=== PATIENT | male | born 1970 | race Hispanic/Latino ===

== ENCOUNTER 2018-11-10 12:13 | Observation (INO) | payer OTHER ==
--- NOTE | 2018-11-10 13:48 | RAD REPORT ---
EXAM DESCRIPTION: RAD - Chest Single View - 11/10/2018 1:32 pm CLINICAL HISTORY: CHEST PAIN Chest pain. COMPARISON: No comparisons FINDINGS: Portable technique limits examination quality. The lungs are grossly clear. The heart is normal in size. No displaced fractures.Right-sided venous c atheter has tip in the right atrium. IMPRESSION: No acute intrathoracic process suspected.
[2018-11-10 13:53] LABS: Albumin 3.4 g/dL (3.4-5.0); Bilirubin Direct 0.1 mg/dL (0-0.2); Bilirubin Total 0.4 mg/dL (0.2-1.0); Potassium 3.5 mmol/L (3.5-5.1); Protein, Total 7.3 g/dL (6.4-8.2); Troponin (Emerg Dept Use Only) 0.02 ng/mL (0.0-0.045)
[2018-11-10 14:00] LABS: Absolute Lymphocytes (CBC) 1.2 K/uL (0.7-4.9); Absolute Monocytes 0.6 K/uL (0.1-1.3); Basophils % 0.3 % (0-1.3); Eosinophils % 0.6 % (0-4.4); Hematocrit 36.1 % (39.6-49.0); Lymphocytes % 12.6 % (15.3-44.8); MPV 8.1 fL (7.6-11.3); Monocytes % 6.3 % (3.3-12.3); RBC Red Blood Cell Count 4.08 M/uL (4.33-5.43)
[2018-11-10 14:09] LABS: Protime INR 1.01
--- NOTE | 2018-11-10 17:15 | EKG ---
Test Date: 2018-11-10 Test Time: 12:53:52 Ice Maker: AME MEASUREMENT RESULTS: Intervals: Rate: 62 MA: 156 QRSD: 112 QT: 458 QTc: 464 [place]: P: 20 MA: 156 QRS: -10 T: 118 INTERPRETIVE STATEMENTS: Normal sinus rhythm Left ventricular hypertrophy with repolarization abnormality Abnormal ECG No previous ECG available for comparison Electronically Signed On 11-10-18 17:13:44 CDT by Daniele Santos
--- NOTE | 2018-11-10 17:34 | ER ---
Nurse's Notes [facility] Name: Ryder Gregory Age: 48 yrs Sex: Male : 1970 Arrival Date: 11/10/2018 Time: 12:19 Bed 27 Private MD: Diagnosis: Shortness of breath;Chest pain, unspecified Presentation: 11/10 12:20 Presenting complaint: EMS states: Pt had episode of SOB and chest pressure after aa5 finishing Dialysis today, EMS reports [facility] reported they removed 2.5 kg today and when they flushed the dialysis catheter with saline pt started experiencing shortness of breath. Pt states "I started feeling a lot of pressure in my neck like somebody was choking me". Pt states "I just started getting dialysis July 2018". 12:20 Method Of Arrival: EMS: [facility] aa5 12:20 Transition of care: [facility]. Onset of symptoms was November 10, 2018. Risk aa5 Assessment: Do you want to hurt yourself or someone else? Patient reports no desire to harm self or others. Initial Sepsis Screen: Does the patient meet any 2 criteria? No. Patient's initial sepsis screen is negative. Does the patient have a suspected source of infection? No. Patient's initial sepsis screen is negative. Care prior to arrival: IV initiated. 20 GA, in the left forearm, Oxygen administered. via nasal cannula. 12:20 Acuity: LEBRON 3 aa5 Triage Assessment: 15:00 Respiratory: Onset: The symptoms/episode began/occurred suddenly. mg2 15:00 Respiratory: Reports shortness of breath. mg2 15:02 Respiratory: the patient has mild shortness of breath. mg2 Historical: - Allergies: 12:20 No Known Allergies; aa5 - PMHx: 12:20 Hypertension; Hyperlipidemia; ESRD; Dialysis; Diabetes - NIDDM; Myocardial infarction; aa5 - PSHx: 12:20 Dialysis catheter to right side of chest; aa5 - Immunization history:: Flu vaccine is up to date. - Social history:: Smoking status: Patient/guardian denies using tobacco. - Ebola Screening: : No symptoms or risks identified at this time. - Family history:: not pertinent. - Hospitalizations: : No recent hospitalization is reported. Screenin:10 Abuse screen: Denies threats or abuse. Denies injuries from another. Nutritional iw screening: No deficits noted. Tuberculosis screening: No symptoms or risk factors identified. Fall Risk IV access (20 points). Assessment: 12:20 Reassessment: Patient states feeling better. Patient states symptoms have improved. aa5 General: Appears comfortable, Behavior is calm, cooperative. Pain: Denies pain. Neuro: Level of Consciousness is awake, alert, obeys commands, Oriented to person, place, time, situation. Cardiovascular: Heart tones S1 S2 present Dialysis catheter noted to right upper chest Rhythm is regular. Respiratory: Airway is patent Respiratory effort is even, unlabored, Respiratory pattern is regular, symmetrical, Breath sounds are clear bilaterally. Denies shortness of breath. GI: Abdomen is round non-distended, Bowel sounds present X 4 quads. Abd is soft and non tender X 4 quads. : No signs and/or symptoms were reported regarding the genitourinary system. EENT: No signs and/or symptoms were reported regarding the EENT system. Derm: Skin is pink, warm \\T\\ dry. Musculoskeletal: Range of motion: intact in all extremities. 13:00 Reassessment: Report given to Brook Arrington RN. aa5 13:39 Reassessment: Patient appears in no apparent distress at this time. Patient and/or iw family updated on plan of care and expected duration. Pain level reassessed. Patient is alert, oriented x 3, equal unlabored respirations, skin warm/dry/pink. pt denies pain at this time, call light within reach, VSS, awaiting lab results and CXR. Vital Signs: 12:22 BP 161 / 81; Pulse 66; Resp 18 S; Temp 97.8(O); Pulse Ox 100% on R/A; Weight 83 kg (R); aa5 Height 5 ft. 7 in. (170.18 cm) (R); Pain 0/10; 14:13 BP 167 / 82; Pulse 60; Resp 16; Pulse Ox 100% on 2 lpm NC; Pain 0/10; iw 15:03 Pulse 68; Resp 18; Pulse Ox 100% on R/A; mg2 15:29 BP 170 / 83; mg2 16:00 BP 188 / 83; Pulse 65; Resp 18; Pulse Ox 100% on 2 lpm NC; mg2 17:02 BP 167 / 87; Pulse 61; Resp 18; Pulse Ox 100% on R/A; Pain 0/10; mg2 17:48 Pulse 69; Resp 18; Pulse Ox 100% on 2 lpm NC; Pain 0/10; mg2 19:27 BP 178 / 86; Pulse 84; Resp 18; Pulse Ox 100% on R/A; Pain 0/10; mg2 20:15 BP 174 / 85; Pulse 71; Resp 18; Pulse Ox 100% on R/A; Pain 0/10; mg2 12:22 Body Mass Index 28.66 (83.00 kg, 170.18 cm) aa5 ED Course: 12:19 Patient arrived in ED. aa5 12:20 Arm band placed on. aa5 12:28 Triage completed. aa5 12:35 Maintain EMS IV. Dressing intact. Site clean \\T\\ dry. Gauge \\T\\ site: 20 gauge in Right kelsi 3 Forearm. 12:40 Kevin Lamb MD is Attending Physician. wa 12:45 Initial lab(s) drawn, by tx, sent to lab. via venipuncture to Right Hand w/22-gauge jp3 needle. 12:59 EKG done, by salvage engineering technician. reviewed by Kevin Lamb MD. 3 13:00 Call light in reach. Side rails up X 1. Side rails up X2. Warm blanket given. Cardiac jp3 monitor on. Pulse ox on. NIBP on. 13:10 Brook Arrington, RN is Primary Nurse. iw 13:19 Basic Metabolic Panel Sent. jp3 13:19 CBC with Diff Sent. jp3 13:19 LFT's Sent. jp3 13:19 NT PRO-BNP Sent. jp3 13:19 PT-INR Sent. jp3 13:19 Troponin (emerg Dept Use Only) Sent. jp3 13:34 XRAY Chest (1 view) In Process Unspecified. EDMS 15:03 No provider procedures requiring assistance completed. mg2 15:29 Spencer Garcia, RN is Primary Nurse. mg2 17:32 Kevin Lamb MD is Hospitalizing Provider. wa 17:32 Montse Jones MD is Hospitalizing Provider. wa 20:43 Patient admitted, IV remains in place. mg2 Administered Medications: No medications were administered Outcome: 17:33 Decision to Hospitalize by Provider. wa 20:43 Admitted to Med/surg accompanied by [facility], via wheelchair, room 210, with oxygen, with mg2 chart, Report called to KELI Almanza 20:43 Condition: stable 20:43 Instructed on the need for admit, Demonstrated understanding of instructions. 21:05 Patient left the ED. mg2 Signatures: Dispatcher [employer] rBook Awad, KELI DICKEY iw Estela Little RN RN aa5 Kevin Lamb MD MD wa Gardose, Michele, RN RN mg2 Deana Quick 3 Pop Moreno jp3 Corrections: (The following items were deleted from the chart) 12:32 12:20 Presenting complaint: EMS states: Pt had episode of SOB and chest pressure after aa5 finishing Dialysis today, EMS reports [facility] reported they removed 2.5kg today and when they flushed the dialysis catheter with saline pt started experiencing shortness of breath. Pt states "I started feeling a lot of pressure in my neck like somebody was choking me" aa5 13:19 12:20 Transition of care: patient was not received from another setting of care. aa5 aa5 19:42 19:27 Pulse 84bpm; Resp 18bpm; Pulse Ox 100% RA; Pain 0/10; mg2 mg2 20:44 20:17 Respiratory: Reports mg2 mg2
--- NOTE | 2018-11-10 17:34 | EDPHYS ---
Physician Documentation [facility] Name: Ryder Gregory Age: 48 yrs Sex: Male : 1970 Arrival Date: 11/10/2018 Time: 12:19 Bed 27 Private MD: ED Physician Kevin Lamb HPI: 11/10 16:46 This 48 yrs old Male presents to ER via EMS with complaints of Shortness Of wa Breath, Chest Pain. 16:46 The patient has shortness of breath at rest, that occurred dialysis. Onset: The wa symptoms/episode began/occurred just prior to arrival. Duration: The symptoms are continuous, but are markedly better than the original presentation. The patient's shortness of breath is aggravated by nothing, is alleviated by nothing. Associated signs and symptoms: Pertinent positives: chest pain, Pertinent negatives: non-productive cough, diaphoresis, dizziness. Severity of symptoms: At their worst the symptoms were moderate in the emergency department the symptoms have resolved. The patient has not experienced similar symptoms in the past. The patient has not recently seen a physician. pt became SOB with chest pain while getting off dialysis. states ok at this time. denies chest pain or SOB at presentation in ED. Historical: - Allergies: 12:20 No Known Allergies; aa5 - PMHx: 12:20 Hypertension; Hyperlipidemia; ESRD; Dialysis; Diabetes - NIDDM; Myocardial infarction; aa5 - PSHx: 12:20 Dialysis catheter to right side of chest; aa5 - Immunization history:: Flu vaccine is up to date. - Social history:: Smoking status: Patient/guardian denies using tobacco. - Ebola Screening: : No symptoms or risks identified at this time. - Family history:: not pertinent. - Hospitalizations: : No recent hospitalization is reported. ROS: 17:16 Constitutional: Negative for fever, chills, and weight loss, Eyes: Negative for injury, wa pain, redness, and discharge, ENT: Negative for injury, pain, and discharge, Neck: Negative for injury, pain, and swelling, Abdomen/GI: Negative for abdominal pain, nausea, vomiting, diarrhea, and constipation, Back: Negative for injury and pain, : Negative for injury, bleeding, discharge, and swelling, MS/Extremity: Negative for injury and deformity, Skin: Negative for injury, rash, and discoloration, Neuro: Negative for headache, weakness, numbness, tingling, and seizure, Psych: Negative for depression, anxiety, suicide ideation, homicidal ideation, and hallucinations. 17:16 Cardiovascular: Positive for chest pain, Negative for edema, orthopnea, palpitations. 17:16 Respiratory: Positive for shortness of breath, at rest. Exam: 17:16 Constitutional: This is a well developed, well nourished patient who is awake, alert, wa and in no acute distress. Head/Face: Normocephalic, atraumatic. Eyes: Pupils equal round and reactive to light, extra-ocular motions intact. Lids and lashes normal. Conjunctiva and sclera are non-icteric and not injected. Cornea within normal limits. Periorbital areas with no swelling, redness, or edema. ENT: Nares patent. No nasal discharge, no septal abnormalities noted. Tympanic membranes are normal and external auditory canals are clear. Oropharynx with no redness, swelling, or masses, exudates, or evidence of obstruction, uvula midline. Mucous membranes moist. Neck: Trachea midline, no thyromegaly or masses palpated, and no cervical lymphadenopathy. Supple, full range of motion without nuchal rigidity, or vertebral point tenderness. No Meningismus. Abdomen/GI: Soft, non-tender, with normal bowel sounds. No distension or tympany. No guarding or rebound. No evidence of tenderness throughout. Back: No spinal tenderness. No costovertebral tenderness. Full range of motion. Skin: Warm, dry with normal turgor. Normal color with no rashes, no lesions, and no evidence of cellulitis. MS/ Extremity: Pulses equal, no cyanosis. Neurovascular intact. Full, normal range of motion. Neuro: Awake and alert, GCS 15, oriented to person, place, time, and situation. Cranial nerves II-XII grossly intact. Motor strength 5/5 in all extremities. Sensory grossly intact. Cerebellar exam normal. Normal gait. Psych: Awake, alert, with orientation to person, place and time. Behavior, mood, and affect are within normal limits. 17:16 Cardiovascular: Rate: normal, Rhythm: regular, Pulses: no pulse deficits are appreciated. 17:16 Respiratory: the patient does not display signs of respiratory distress, Respirations: normal, Breath sounds: mildly coarse bilaterally. Vital Signs: 12:22 BP 161 / 81; Pulse 66; Resp 18 S; Temp 97.8(O); Pulse Ox 100% on R/A; Weight 83 kg (R); aa5 Height 5 ft. 7 in. (170.18 cm) (R); Pain 0/10; 14:13 BP 167 / 82; Pulse 60; Resp 16; Pulse Ox 100% on 2 lpm NC; Pain 0/10; iw 15:03 Pulse 68; Resp 18; Pulse Ox 100% on R/A; mg2 15:29 BP 170 / 83; mg2 16:00 BP 188 / 83; Pulse 65; Resp 18; Pulse Ox 100% on 2 lpm NC; mg2 17:02 BP 167 / 87; Pulse 61; Resp 18; Pulse Ox 100% on R/A; Pain 0/10; mg2 17:48 Pulse 69; Resp 18; Pulse Ox 100% on 2 lpm NC; Pain 0/10; mg2 19:27 BP 178 / 86; Pulse 84; Resp 18; Pulse Ox 100% on R/A; Pain 0/10; mg2 20:15 BP 174 / 85; Pulse 71; Resp 18; Pulse Ox 100% on R/A; Pain 0/10; mg2 12:22 Body Mass Index 28.66 (83.00 kg, 170.18 cm) aa5 MDM: 12:40 Patient medically screened. mt 17:17 Differential diagnosis: CHF exacerbation, Myocardial Infarction Pneumothorax pulmonary wa edema, Unstable Angina. 17:28 Data reviewed: vital signs, nurses notes. Test interpretation: by ED physician or mt midlevel provider: EKG: HR 63. LVH. diffuse ST-T changes. non-specific flipped T waves. 17:30 Test interpretation: by ED physician or midlevel provider: labs noted for elevated BNP. mt renal insufficiency. CXR no acute process. 17:31 ED course: improved. will admit for obs. r/o ACS. nml initial troponin. mt 11/10 13:03 Order name: Basic Metabolic Panel; Complete Time: 14:55 mt 11/10 13:03 Order name: CBC with Diff; Complete Time: 14:55 mt 11/10 13:03 Order name: LFT's; Complete Time: 14:55 mt 11/10 13:03 Order name: NT PRO-BNP; Complete Time: 14:55 mt 11/10 13:03 Order name: PT-INR; Complete Time: 14:55 mt 11/10 13:03 Order name: Troponin (emerg Dept Use Only); Complete Time: 14:55 mt 11/10 13:03 Order name: XRAY Chest (1 view); Complete Time: 14:55 mt 11/10 13:03 Order name: EKG; Complete Time: 13:04 mt 11/10 13:03 Order name: Cardiac monitoring; Complete Time: 13:20 mt 11/10 13:03 Order name: EKG - Nurse/Tech; Complete Time: 13:20 mt 11/10 13:03 Order name: IV Saline Lock; Complete Time: 13:20 11/10 13:03 Order name: Labs collected and sent; Complete Time: 13:20 mt 11/10 13:03 Order name: O2 Per Protocol; Complete Time: 13:39 mt 11/10 17:56 Order name: Diet Ada 1800 Perico; Complete Time: 17:57 aa5 11/10 13:03 Order name: O2 Sat Monitoring; Complete Time: 13:39 mt Administered Medications: No medications were administered Disposition: 11/10/18 17:33 Hospitalization ordered by Montse Jones for Observation. Preliminary diagnosis are Shortness of breath, Chest pain, unspecified. - Bed requested for Telemetry/MedSurg (observation). - Status is Observation. mg2 - Condition is Stable. - Problem is new. - Symptoms have improved. UTI on Admission? No Signatures: Dispatcher [employer] EDMS Estela Little RN RN aa5 Vicki Naik RN RN Kevin Lamb MD MD mt Spencer Garcia RN RN mg2 Corrections: (The following items were deleted from the chart) 20:14 17:33 Hospitalization Ordered by Montse Jones MD for Observation. Preliminary diagnosis cg is Shortness of breath; Chest pain, unspecified. Bed requested for Telemetry/MedSurg (observation). Status is Observation. Condition is Stable. Problem is new. Symptoms have improved. UTI on Admission? No. mt 21:05 20:14 11/10/2018 17:33 Hospitalization Ordered by Montse Jones MD for Observation. mg2 Preliminary diagnosis is Shortness of breath; Chest pain, unspecified. Bed requested for Telemetry/MedSurg (observation). Status is Observation. Condition is Stable. Problem is new. Symptoms have improved. UTI on Admission? No. cg
--- NOTE | 2018-11-10 18:50 | P.HP ---
Certification for Inpatient Patient admitted to: Observation With expected LOS: <2 Midnights Practitioner: I am a practitioner with admitting privileges, knowledge of patient current condition, hospital course, and medical plan of care. Services: Services provided to patient in accordance with Admission requirements found in Title 42 Section 412.3 of the Code of Federal Regulations Patient History Date of Service: 11/10/18 Primary Care Provider: None, will establish after insurance (after 11/16/2018) Reason for admission: SOB, CP after dialysis History of Present Illness: This is a 48 yr old male with a PMH of HTN, HLD, ESRD on HD, NIDDM, and hx of OR admitted for cp and sob after a dialysis session. Per patient, he felt like he was choking and could not breathe. States this has never happened before. He recently started dialysis in july. He denies any chills, fevers, headaches, dizziness, vision changes, slurred speech or facial drooping. No alleviating or exacerbating factors. He was brought to the ER from the dialysis center via an ambulance. His symptoms resolved prior to coming to the ER. In the ER, his BP was elevated, troponin were negative x 1, EKG without any changes and labs were unremarkable. At the time of my exam, he was AAOx3, hemodynamically stable and in no acute distress. He was satting 100% on 2L oxygen via nasal canula. Allergies No Known Allergies Allergy (Verified 11/10/18 21:16) Home medications list reviewed: Yes Home Medications: Atorvastatin Calcium [Lipitor*] 40 mg PO BEDTIME 11/10/18 Calcium Acetate [Phoslo*] 1 tab PO TIDWM 11/10/18 Lisinopril 20 mg PO DAILY 11/10/18 Metoprolol Tartrate 25 mg PO BID 11/10/18 Vit B Comp No.3/Folic/C/Biotin [Ladle Liner Helper-Jadiel Rx Tablet] 1 tab PO DAILY 11/10/18 - Past Medical/Surgical History Diabetic: Yes -: HTN -: HLD -: ESRD on HD -: NIDDM -: Hx of OR Review of Systems 10-point ROS is otherwise unremarkable Physical Examination - Physical Exam General: Alert, In no apparent distress, Oriented x3 HEENT: Atraumatic, PERRLA, Mucous membr. moist/pink, EOMI, Sclerae nonicteric Neck: Supple, 2+ carotid pulse no bruit, No LAD, Without JVD or thyroid abnormality Respiratory: Clear to auscultation bilaterally, Normal air movement Cardiovascular: Regular rate/rhythm, Normal S1 S2 Gastrointestinal: Normal bowel sounds, No tenderness Musculoskeletal: No tenderness Integumentary: No rashes Neurological: Normal gait, Normal speech, Normal strength at 5/5 x4 extr, Normal tone, Normal affect Lymphatics: No axilla or inguinal lymphadenopathy Urinary: Other (Dialysis catheter in right chest wall) - Studies Laboratory Data (last 24 hrs) 11/10/18 12:45: PT 11.9, INR 1.01 11/10/18 12:45: WBC 9.9, Hgb 12.7 L, Hct 36.1 L, Plt Count 168 11/10/18 12:45: Sodium 138, Potassium 3.5, BUN 35 H, Creatinine 4.61 H, Glucose 183 H, Total Bilirubin 0.4, AST 19, ALT 26, Alkaline Phosphatase 101 Assessment and Plan - Problems (Diagnosis) (1) Shortness of breath Current Visit: Yes Status: Acute (2) Chest pain Current Visit: Yes Status: Acute Qualifiers: Chest pain type: unspecified Qualified Code(s): R07.9 - Chest pain, unspecified (3) ESRD (end stage renal disease) on dialysis Current Visit: Yes Status: Chronic (4) HTN (hypertension) Current Visit: Yes Status: Chronic Qualifiers: Hypertension type: essential hypertension Qualified Code(s): I10 - Essential (primary) hypertension (5) HLD (hyperlipidemia) Current Visit: No Status: Chronic Qualifiers: Hyperlipidemia type: unspecified Qualified Code(s): E78.5 - Hyperlipidemia , unspecified (6) Diabetes mellitus Current Visit: No Status: Acute Qualifiers: Diabetes mellitus type: type 2 Diabetes mellitus jail insulin use: without welfare visitor use Diabetes mellitus complication status: without complication Qualified Code(s): E11.9 - Type 2 diabetes mellitus without complications (7) History of OR (myocardial infarction) Current Visit: Yes Status: Chronic - Plan Admit to floor with tele for obs Trend troponin and EKG Symptoms have resolved. If returns, will get ECHO and cards consult. Will restart home medications Blood pressure elevated. Will restart home medications and monitor blood pressure. We will make adjustments as needed. AM Labs DVT prophylaxis: Lovenox GI prophylaxis: not needed Diet: 1800 DM, w/ 1 L fluid restriction Disposition: Observation overnight. If stable, possible DC home in the next 24- 48 hours Discharge Plan: Home Plan to discharge in: 24 Hours - Advance Directives Does patient have a Living Will: No Does patient have a Durable POA for Healthcare: No - Code Status/Comfort Care Code Status Assessed: No Critical Care: No Time Spent Managing Pts Care (In Minutes): 55
[2018-11-10] MEDS ORDERED: ONDANSETRON 4 MG/2 ML VIAL IV PRN (21:07)
[2018-11-10] MEDS: METOPROLOL TAR 25 MG TAB PO SCH (22:28)
[2018-11-10] MEDS ORDERED: METOPROLOL TAR 50 MG TAB PO ONE (22:56)
[2018-11-11 06:05] LABS: Absolute Lymphocytes (CBC) 2.4 K/uL (0.7-4.9); Absolute Monocytes 0.8 K/uL (0.1-1.3); Basophils % 0.9 % (0-1.3); Eosinophils % 2.4 % (0-4.4); Hematocrit 35.5 % (39.6-49.0); Lymphocytes % 25.1 % (15.3-44.8); MPV 8.1 fL (7.6-11.3); Monocytes % 8.4 % (3.3-12.3); RBC Red Blood Cell Count 3.96 M/uL (4.33-5.43)
[2018-11-11 06:41] LABS: Albumin 2.9 g/dL (3.4-5.0); Bilirubin Total 0.3 mg/dL (0.2-1.0); Magnesium 2.3 mg/dL (1.8-2.4); Phosphorus 5.7 mg/dL (2.5-4.9); Potassium 4.2 mmol/L (3.5-5.1); Protein, Total 6.5 g/dL (6.4-8.2); Troponin I 0.03 ng/mL (0.0-0.045)
[2018-11-11] MEDS: CA ACETATE 667 MG CAP PO SCH ×2 (08:44→12:25)
[2018-11-11] MEDS: METOPROLOL TAR 25 MG TAB PO SCH (08:45)
[2018-11-11] MEDS ORDERED: MULTIVITAMINS,THERAPEUT 1 TAB PO SCH (09:00)
[2018-11-11] MEDS ORDERED: LISINOPRIL 10 MG TAB PO SCH (09:00)
--- NOTE | 2018-11-11 11:36 | EKG ---
Test Date: 2018-11-11 Test Time: 08:22:42 Teacher Vocational Training: EDOUARD MEASUREMENT RESULTS: Intervals: Rate: 63 WY: 156 QRSD: 108 QT: 458 QTc: 468 [place]: P: 19 WY: 156 QRS: -15 T: 93 INTERPRETIVE STATEMENTS: Normal sinus rhythm Minimal voltage criteria for LVH, may be normal variant T wave abnormality, consider lateral ischemia Prolonged QT Abnormal ECG Compared to ECG 11/10/2018 12:53:52 T-wave abnormality now present Possible ischemia now present Prolonged QT interval now present Early repolarization no longer present Electronically Signed On 11-11-18 11:36:07 CDT by Daniele Santos
--- NOTE | 2018-11-11 11:51 | P.SSS ---
Patient History Date of Service: 11/11/18 Primary Care Provider: None, will establish after insurance (after 11/16/2018) Reason for admission: SOB, CP after dialysis History of Present Illness: This is a 48 yr old male with a PMH of HTN, HLD, ESRD on HD, NIDDM, and hx of [place] admitted for cp and sob after a dialysis session. Per patient, he felt like he was choking and could not breathe. States this has never happened before. He recently started dialysis in july. He denies any chills, fevers, headaches, dizziness, vision changes, slurred speech or facial drooping. No alleviating or exacerbating factors. He was brought to the ER from the dialysis center via an ambulance. His symptoms resolved prior to coming to the ER. In the ER, his BP was elevated, troponin were negative x 1, EKG without any changes and labs were unremarkable. At the time of my exam, he was AAOx3, hemodynamically stable and in no acute distress. He was satting 100% on 2L oxygen via nasal canula. Allergies No Known Allergies Allergy (Verified 11/10/18 21:16) Home Medications: Atorvastatin Calcium [Lipitor*] 40 mg PO BEDTIME 11/10/18 Calcium Acetate [Phoslo*] 1 tab PO TIDWM 11/10/18 Lisinopril 20 mg PO DAILY 11/10/18 Metoprolol Tartrate 25 mg PO BID 11/10/18 Vit B Comp No.3/Folic/C/Biotin [Tube Tester-Jadiel Rx Tablet] 1 tab PO DAILY 11/10/18 - Past Medical/Surgical History Has patient received pneumonia vaccine in the past: Yes Diabetic: Yes -: HTN -: HLD -: ESRD on HD -: NIDDM -: Hx of [place] -: NIDDM -: Port-A-Cath Right Chest Wall - Social History Smoking Status: Former smoker Alcohol use: Yes CD- Drugs: No Caffeine use: Yes Place of Residence: Home Review of Systems 10-point ROS is otherwise unremarkable Physical Examination - Vital Signs Temperature: 97 F Blood Pressure: 172/86 Pulse: 66 Respirations: 18 Pulse Ox (%): 100 - Physical Exam General: Alert, In no apparent distress, Oriented x3 HEENT: Atraumatic, PERRLA, Mucous membr. moist/pink, EOMI, Sclerae nonicteric Neck: Supple, 2+ carotid pulse no bruit, No LAD, Without JVD or thyroid abnormality Respiratory: Clear to auscultation bilaterally, Normal air movement Cardiovascular: Regular rate/rhythm, Normal S1 S2 Gastrointestinal: Normal bowel sounds, No tenderness Musculoskeletal: No tenderness Integumentary: No rashes Neurological: Normal gait, Normal speech, Normal strength at 5/5 x4 extr, Normal tone, Normal affect Lymphatics: No axilla or inguinal lymphadenopathy - Studies Laboratory Data (last 24 hrs) 11/10/18 12:45: PT 11.9, INR 1.01 11/10/18 12:45: WBC 9.9, Hgb 12.7 L, Hct 36.1 L, Plt Count 168 11/10/18 12:45: Sodium 138, Potassium 3.5, BUN 35 H, Creatinine 4.61 H, Glucose 183 H, Total Bilirubin 0.4, AST 19, ALT 26, Alkaline Phosphatase 101 - Diagnosis (Problem(s)) (1) Shortness of breath Current Visit: Yes Status: Acute (2) Chest pain Current Visit: Yes Status: Acute Qualifiers: Chest pain type: unspecified Qualified Code(s): R07.9 - Chest pain, unspecified (3) ESRD (end stage renal disease) on dialysis Current Visit: Yes Status: Chronic (4) HTN (hypertension) Current Visit: Yes Status: Chronic Qualifiers: Hypertension type: essential hypertension Qualified Code(s): I10 - Essential (primary) hypertension (5) HLD (hyperlipidemia) Current Visit: No Status: Chronic Qualifiers: Hyperlipidemia type: unspecified Qualified Code(s): E78.5 - Hyperlipidemia , unspecified (6) Diabetes mellitus Current Visit: No Status: Acute Qualifiers: Diabetes mellitus type: type 2 Diabetes mellitus window draper insulin use: without longterm use Diabetes mellitus complication status: without complication Qualified Code(s): E11.9 - Type 2 diabetes mellitus without complications (7) History of [place] (myocardial infarction) Current Visit: Yes Status: Chronic Treatment Summary: Patient was admitted to floor with tele for observation. Troponins negative, EKG without any changes. Symptoms had resolved prior to his arrival in the Emergency room. He remained asymptomatic throughout the night. His labs stbale, BP elevated though improved with home medications. Prior to discharge, he was AAOx4, in no acute distress, ambulating, tolerating a diet. He had no complaints prior to discharge. - Disposition Discharge Date: 11/11/18 Disposition: ROUTINE DISCHARGE Condition: GOOD Patient Discharge Instructions: Please follow up with your primary care physician in 2-3 days. Please continue your regular dialysis sessions as scheduled. Return to the Emergency room for worsening symptoms. Diet: Renal Activity: Ad alexis Critical Care: No Time Spent Managing Pts Care (In Minutes): 55
[2018-11-11] MEDS ORDERED: ATORVASTATIN 20 MG TAB PO SCH (21:00)
== END 2018-11-11 15:28 | disposition home or self-care (01) ==
LOC: ER 12:13 → ERHOLD 18:42 → 2ND 20:49
PROVIDERS: ADMIT Family Medicine; ATTEND Family Medicine
DX: R07.9 Chest pain, unspecified (principal); R06.02 Shortness of breath; I12.0 Hypertensive chronic kidney disease with stage 5 chronic kidney disease or end stage renal disease; E11.22 Type 2 diabetes mellitus with diabetic chronic kidney disease; N18.6 End stage renal disease; E78.5 Hyperlipidemia, unspecified; I25.2 Old myocardial infarction
CPT/HCPCS: 93005 ×2; 85025 ×2; 80048; 36415; 83735; 84100; 85610; 82962 ×2; 80076; 84484 ×4; 80053; 83880; 71045; 99285; G0378 ×2

== ENCOUNTER 2021-10-15 18:40 | Observation (INO) | payer OTHER ==
[2021-10-15 19:11] LABS: Absolute Lymphocytes (CBC) 1.6 K/uL (0.7-4.9); Hematocrit 30.1 % (39.6-49.0); Lymphocytes % 18.4 % (15.3-44.8); MPV 8.6 fL (7.6-11.3); RBC Red Blood Cell Count 3.47 M/uL (4.33-5.43)
[2021-10-15 19:17] LABS: Protime INR 1.08
[2021-10-15 19:25] LABS: BUN Blood Urea Nitrogen 37 mg/dL (7-18); Bicarbonate 30 mmol/L (21-32); Glucose Level 213 mg/dL (74-106); Potassium 4.3 mmol/L (3.5-5.1); Sodium Level 139 mmol/L (136-145)
--- NOTE | 2021-10-15 19:30 | ER ---
Nurse's Notes [facility] Name: Ryder Gregory Age: 51 yrs Sex: Male : 1970 Arrival Date: 10/15/2021 Time: 18:42 Bed 28 Private MD: Diagnosis: End stage renal disease-on HD M,W,F;Cardiomegaly;Systolic (congestive) heart failure;Type 2 diabetes mellitus with hyperglycemia Presentation: 10/15 18:53 Chief complaint: EMS states: Per EMS, pt c/o SOB when laying down after dialysis today. ss7 Ebola Screen: No symptoms or risks identified at this time. Initial Sepsis Screen: Does the patient meet any 2 criteria? No. Patient's initial sepsis screen is negative. Does the patient have a suspected source of infection? No. Patient's initial sepsis screen is negative. Risk Assessment: Do you want to hurt yourself or someone else? Patient reports no desire to harm self or others. 18:53 Method Of Arrival: EMS [facility] 18:53 Acuity: LEBRON 3 ss7 19:11 Coronavirus screen: Vaccine status: Patient reports receiving the 2nd dose of the covid ss7 vaccine. Onset of symptoms was October 15, 2021. Triage Assessment: 19:11 General: Appears in no apparent distress. comfortable, Behavior is calm, cooperative, ss7 appropriate for age. Pain: Denies pain. Cardiovascular: Heart tones S1 S2. Respiratory: Breath sounds are clear bilaterally. GI: No deficits noted. Bowel sounds present X 4 quads. : dialysis shunt to LFA. Derm: No deficits noted. Musculoskeletal: No deficits noted. Historical: - Allergies: 19:07 No Known Allergies; ss7 - PMHx: 19:07 Diabetes - NIDDM; Dialysis; ESRD; Hyperlipidemia; Hypertension; Myocardial infarction; ss7 - Immunization history:: Adult Immunizations up to date. - Social history:: Smoking status: unknown. - Family history:: not pertinent. Screenin:10 Abuse screen: Denies threats or abuse. Nutritional screening: No deficits noted. ss7 Tuberculosis screening: No symptoms or risk factors identified. Fall Risk IV access (20 points). Assessment: 19:00 General: Appears in no apparent distress. comfortable, Behavior is calm, cooperative, ss7 appropriate for age. Pain: Denies pain. Neuro: Level of Consciousness is awake, alert, obeys commands, Oriented to person, place, time, situation, Accountant Clerk are equal bilaterally Moves all extremities. Gait is steady. Vital Signs: 18:53 BP 194 / 90; Pulse 61; Resp 18; Temp 97.4; Pulse Ox 99% on R/A; ss7 20:00 BP 184 / 73; Pulse 72; Resp 18; Pulse Ox 100% on R/A; ss7 22:00 BP 167 / 74; Pulse 62; Resp 18; Pulse Ox 95% ; ss7 ED Course: 18:42 Patient arrived in ED. ryan 18:42 Albino Mills MD is Attending Physician. ryan 18:53 Tracie Dan, KELI is Primary Nurse. ss7 19:07 Triage completed. ss7 19:07 Arm band placed on left wrist. ss7 19:10 Patient has correct armband on for positive identification. Bed in low position. Call ss7 light in reach. Side rails up X2. 19:10 No provider procedures requiring assistance completed. Inserted saline lock: 20 gauge ss7 in right forearm, using aseptic technique. 19:10 Maintain EMS IV. Gauge \\T\\ site: 18G [place]. ss7 19:11 EKG completed in triage. Results shown to MD. ss7 19:14 NT PRO-BNP Sent. ss7 19:14 Liver (Hepatic) Function Sent. ss7 19:14 Magnesium Sent. ss7 19:14 Basic Metabolic Panel Sent. ss7 19:14 SARS-COV-2 RT PCR (Document "Date of Onset" if Symptomatic) Sent. ss7 19:14 Basic Metabolic Panel Sent. ss7 19:14 LFT's Sent. ss7 19:14 Magnesium Sent. ss7 19:14 NT PRO-BNP Sent. ss7 19:14 Troponin HS Sent. ss7 19:14 PT-INR Sent. ss7 19:28 León Duong MD is Hospitalizing Provider. [facility] 19:30 XRAY Chest (1 view) In Process Unspecified. EDMS 10/16 00:05 Report given to Asiha. ss7 Administered Medications: 10/15 20:18 Drug: Tylenol 1000 mg Route: PO; ss7 20:18 Drug: Lasix (furosemide) 100 mg Route: IVP; Site: right antecubital; ss7 20:19 Drug: Nitro-Bid (nitroglycerin) Ointment 2 % 1 inches Route: Transdermal; Site: ss7 anterior chest wall; Outcome: 19:29 Decision to Hospitalize by Provider. ryan 10/16 10:03 Patient left the ED. iw Signatures: Dispatcher [employer] EDAlbino Chamberlain MD MD cha Williams, Irene, RN RN Tracie Bryan RN RN ss7
--- NOTE | 2021-10-15 19:30 | EDPHYS ---
Physician Documentation [facility] Name: Ryder Gregory Age: 51 yrs Sex: Male : 1970 Arrival Date: 10/15/2021 Time: 18:42 Bed 28 Private MD: ED Physician Albino Mills HPI: 10/15 19:18 This 51 yrs old Male presents to ER via EMS with complaints of sob afterlaying ryan jose after dialysis. 19:18 The patient has shortness of breath with light activity, that woke him/her from sleep. ryan Onset: The symptoms/episode began/occurred just prior to arrival. Duration: The symptoms are continuous, and are steadily getting worse. The patient's shortness of breath is aggravated by supine position, is alleviated by sitting up, application of supplemental oxygen. esrd on hd , 3 1/2 today aglieco. Severity of symptoms: At their worst the symptoms were moderate in the emergency department the symptoms have improved mildly. Onset: The symptoms/episode began/occurred just prior to arrival. The patient has experienced similar episodes in the past, several times. Historical: - Allergies: 19:07 No Known Allergies; ss7 - PMHx: 19:07 Diabetes - NIDDM; Dialysis; ESRD; Hyperlipidemia; Hypertension; Myocardial infarction; ss7 - Immunization history:: Adult Immunizations up to date. - Social history:: Smoking status: unknown. - Family history:: not pertinent. ROS: 19:18 Constitutional: Negative for fever, chills, and weight loss, Eyes: Negative for injury, ryan pain, redness, and discharge, ENT: Negative for injury, pain, and discharge, Neck: Negative for injury, pain, and swelling, Cardiovascular: Negative for chest pain, palpitations, and edema, Abdomen/GI: Negative for abdominal pain, nausea, vomiting, diarrhea, and constipation, Back: Negative for injury and pain, : Negative for injury, bleeding, discharge, and swelling, MS/Extremity: Negative for injury and deformity, Skin: Negative for injury, rash, and discoloration, Neuro: Negative for headache, weakness, numbness, tingling, and seizure, Psych: Negative for depression, anxiety, suicide ideation, homicidal ideation, and hallucinations, Allergy/Immunology: Negative for hives, rash, and allergies, Endocrine: Negative for neck swelling, polydipsia, polyuria, polyphagia, and marked weight changes, Hematologic/Lymphatic: Negative for swollen nodes, abnormal bleeding, and unusual bruising. 19:18 Respiratory: Positive for cough, shortness of breath, at rest. Exam: 19:18 Constitutional: This is a well developed, well nourished patient who is awake, alert, ryan and in no acute distress. Head/Face: Normocephalic, atraumatic. Eyes: Pupils equal round and reactive to light, extra-ocular motions intact. Lids and lashes normal. Conjunctiva and sclera are non-icteric and not injected. Cornea within normal limits. Periorbital areas with no swelling, redness, or edema. ENT: Nares patent. No nasal discharge, no septal abnormalities noted. Tympanic membranes are normal and external auditory canals are clear. Oropharynx with no redness, swelling, or masses, exudates, or evidence of obstruction, uvula midline. Mucous membranes moist. Neck: Trachea midline, no thyromegaly or masses palpated, and no cervical lymphadenopathy. Supple, full range of motion without nuchal rigidity, or vertebral point tenderness. No Meningismus. Chest/axilla: Normal chest wall appearance and motion. Nontender with no deformity. No lesions are appreciated. Cardiovascular: Regular rate and rhythm with a normal S1 and S2. No gallops, murmurs, or rubs. Normal PMI, no JVD. No pulse deficits. Abdomen/GI: Soft, non-tender, with normal bowel sounds. No distension or tympany. No guarding or rebound. No evidence of tenderness throughout. Back: No spinal tenderness. No costovertebral tenderness. Full range of motion. Male : Normal genitalia with no discharge or lesions. Skin: Warm, dry with normal turgor. Normal color with no rashes, no lesions, and no evidence of cellulitis. MS/ Extremity: Pulses equal, no cyanosis. Neurovascular intact. Full, normal range of motion. Neuro: Awake and alert, GCS 15, oriented to person, place, time, and situation. Cranial nerves II-XII grossly intact. Motor strength 5/5 in all extremities. Sensory grossly intact. Cerebellar exam normal. Normal gait. Psych: Awake, alert, with orientation to person, place and time. Behavior, mood, and affect are within normal limits. 19:18 ECG was reviewed by the Attending Physician. 19:18 Respiratory: the patient does not display signs of respiratory distress, Respirations: normal, Breath sounds: decreased breath sounds, that are mild, Respiratory rate: 18 Vital Signs: 18:53 BP 194 / 90; Pulse 61; Resp 18; Temp 97.4; Pulse Ox 99% on R/A; ss7 20:00 BP 184 / 73; Pulse 72; Resp 18; Pulse Ox 100% on R/A; ss7 22:00 BP 167 / 74; Pulse 62; Resp 18; Pulse Ox 95% ; ss7 MDM: 18:42 Patient medically screened. ryan 19:25 Differential diagnosis: Anemia Bronchitis CHF exacerbation, pneumonia, pulmonary edema, ryan Sepsis Unstable Angina. Antibiotic administration: Not indicated, the patient does not have an appreciated infiltrate. The patient's Wells Deep Vein Thrombosis Score was calculated as follows: Total Score: 0-2 Pts- Low Risk. The patient's pulmonary embolism risk score was calculated as follows: Total Score: 0-2 points. This patient was found to be at low risk for a pulmonary embolism by using the Well's assessment criteria. Immunization status: Influenza vaccine: Data reviewed: vital signs, nurses notes, lab test result(s), EKG, radiologic studies, CT scan, plain films. Data interpreted: groundwater monitoring technician: rate is 61 beats/min, rhythm is regular, Pulse oximetry: on room air is 99 %. Test interpretation: by ED physician or midlevel provider: ECG, plain radiologic studies. Counseling: I had a detailed discussion with the patient and/or guardian regarding: the historical points, exam findings, and any diagnostic results supporting the discharge/admit diagnosis, lab results, radiology results, the need for further work-up and treatment in the hospital. 10/15 18:45 Order name: Basic Metabolic Panel [facility] 10/15 18:45 Order name: CBC with Diff; Complete Time: : [facility] 10/15 20:35 Interpretation: Normal except: RBC 3.47; HGB 10.1; HCT 30.1. cp 10/15 18:45 Order name: LFT's 10/15 18:45 Order name: Magnesium 10/15 18:45 Order name: NT PRO-BNP [facility] 10/15 18:45 Order name: PT-INR; Complete Time: : [facility] 10/15 18:45 Order name: Troponin HS [facility] 10/15 18:45 Order name: SARS-COV-2 RT PCR (Document "Date of Onset" if Symptomatic); Complete Time: [facility] 20:34 10/15 18:46 Order name: Basic Metabolic Panel [facility] 10/15 20:35 Interpretation: Normal except: GLUC 213; BUN 37; CRE 8.76; GFR 6. cp 10/15 18:46 Order name: Liver (Hepatic) Function [facility] 10/15 18:46 Order name: Magnesium [facility] 10/15 18:46 Order name: NT PRO-BNP [facility] 10/15 22:26 Order name: Glucose, Ancillary Testing [facility] 10/15 23:21 Order name: Troponin High Sensitivity [facility] 10/15 18:45 Order name: XRAY Chest (1 view); Complete Time: 20:08 [facility] 10/15 18:45 Order name: EKG; Complete Time: 18:46 [facility] 10/15 18:45 Order name: Cardiac monitoring; Complete Time: 19:14 [facility] 10/15 18:45 Order name: EKG - Nurse/Tech; Complete Time: 19:14 [facility] 10/15 18:45 Order name: IV Saline Lock; Complete Time: 19:14 [facility] 10/15 18:45 Order name: Labs collected and sent; Complete Time: 19:14 [facility] 10/15 18:45 Order name: O2 Per Protocol; Complete Time: 19:14 [facility] 10/15 18:45 Order name: O2 Sat Monitoring; Complete Time: 19:14 [facility] 10/16 03:20 Order name: CBC with Automated Diff [facility] 10/16 03:40 Order name: Comprehensive Metabolic Panel [facility] 10/16 03:40 Order name: Troponin High Sensitivity [facility] 10/16 07:14 Order name: Urinalysis [facility] 10/16 07:59 Order name: Glucose, Ancillary Testing [facility] EC:18 Rate is 71 beats/min. Rhythm is regular. QRS [place] is Normal. [place] interval is normal. QRS ryan interval is normal. QT interval is normal. No Q waves. T waves are Normal. No ST changes noted. Clinical impression: Abnormal EKG without significant change, LVH, and No evidence of ischemia. Interpreted by me. Reviewed by me. Administered Medications: 20:18 Drug: Tylenol 1000 mg Route: PO; ss7 20:18 Drug: Lasix (furosemide) 100 mg Route: IVP; Site: right antecubital; ss7 20:19 Drug: Nitro-Bid (nitroglycerin) Ointment 2 % 1 inches Route: Transdermal; Site: ss7 anterior chest wall; Disposition Summary: 10/15/21 19:29 Hospitalization Ordered Hospitalization Status: Observation ryan Provider: León Duong cha Condition: Fair ryan Problem: new ryan Symptoms: have improved ryan Bed/Room Type: Standard ryan Location: Telemetry/MedSurg (observation)(10/16/21 08:44) bd Room Assignment: 426(10/16/21 08:44) bd Diagnosis - End stage renal disease - on HD M,W,F ryan - Cardiomegaly ryan - Systolic (congestive) heart failure ryan - Type 2 diabetes mellitus with hyperglycemia ryan Forms: - Medication Reconciliation Form ryan - SBAR form ryan Signatures: Dispatcher [employer] EDMS Antoinette Olivares Martha, RN RN mw Anderson, Corey, MD MD cha Attema, Lee, STATISTICS MANAGER-C STATISTICS MANAGER-Cla1 Albino Floyd PA PA cp Smith, Shana, RN RN ss7 Corrections: (The following items were deleted from the chart) 19:48 19:29 ryan mw 19:59 19:29 Telemetry/MedSurg (observation) ryan mw 19:59 19:48 209 mw mw 20:32 19:59 Telemetry/MedSurg (Inpatient) mw mw 20:32 19:59 mw mw 10/16 08:44 10/15 20:32 [facility] ER HOLD mw bd 10/16 08:44 10/15 20:32 ERHOLD- mw bd
--- NOTE | 2021-10-15 19:59 | RAD REPORT ---
EXAM DESCRIPTION: Pablo Single View10/15/2021 7:30 pm CLINICAL HISTORY: Chest pain COMPARISON: 2019 FINDINGS: Mild bilateral pulmonary opacities. Heart is mildly enlarged. IMPRESSION: Mild bilateral pulmonary opacities may indicate pneumonia
[2021-10-15] MEDS ORDERED: ACETAMINOPHEN 500 MG TAB ONE (20:12)
[2021-10-15] MEDS ORDERED: FUROSEMIDE 100 MG/10 ML VIAL IV ONE (20:12)
[2021-10-15] MEDS ORDERED: NITROGLYCERIN 1 GM PKT TD ONE (20:13)
--- NOTE | 2021-10-15 20:42 | P.HP ---
Certification for Inpatient Patient admitted to: Observation With expected LOS: <2 Midnights Patient will require the following post-hospital care: None Practitioner: I am a practitioner with admitting privileges, knowledge of patient current condition, hospital course, and medical plan of care. Services: Services provided to patient in accordance with Admission requirements found in Title 42 Section 412.3 of the Code of Federal Regulations Patient History Date of Service: 10/15/21 Reason for admission: Dyspnea History of Present Illness: 51-year-old male with history of ESRD on HD MWF, diabetes mellitus type 2insulin-dependent, hypertension, hyperlipidemia and coronary artery disease presents emergency department for dyspnea, orthopnea. Patient had dialysis today 3.5 hours completed tolerated well at home there is that he was dyspneic, especially when lying down. Patient presented to the emergency department for evaluation his labs were significant for creatinine 8.76 potassium 4.3 BUN 37 glucose 213 Covid test negative chest x-ray demonstrates bilateral pulmonary opacities suspect volume overload. Case was discussed with patient's pot fireman who recommended observation admit and dialysis in the morning, reports he would be unable to get dialysis performed on outpatient basis tomorrow therefore will need to stay overnight, will rule out ACS and have patient dialyzed. Allergies No Known Allergies Allergy (Verified 11/10/18 21:16) Home Medications: Atorvastatin Calcium [Lipitor*] 40 mg PO BEDTIME 11/10/18 Calcium Acetate [Phoslo*] 1 tab PO TIDWM 11/10/18 Metoprolol Tartrate 25 mg PO BID 11/10/18 Vit B Comp No.3/Folic/C/Biotin [Cemetery Worker-Jadiel Rx Tablet] 1 tab PO DAILY 11/10/18 lisinopriL [Lisinopril] 20 mg PO DAILY 11/10/18 - Past Medical/Surgical History Diabetic: Yes -: HTN -: HLD -: ESRD on HD -: NIDDM -: Hx of [place] -: Port-A-Cath Right Chest Wall Psychosocial/ Personal History: Lives at home with family - Family History Family History: Reviewed- Non-Contributory - Social History Smoking Status: Never smoker Alcohol use: Yes CD- Drugs: No Caffeine use: Yes Place of Residence: Home Review of Systems 10-point ROS is otherwise unremarkable Respiratory: Shortness of Breath, Other Cardiovascular: Orthopnea Physical Examination - Physical Exam General: Alert, In no apparent distress, Oriented x3 HEENT: Atraumatic, PERRLA, Mucous membr. moist/pink, EOMI, Sclerae nonicteric Neck: Supple, 2+ carotid pulse no bruit, No LAD, Without JVD or thyroid abnormality Respiratory: Diminished, Crackles/rales Cardiovascular: Regular rate/rhythm, Normal S1 S2 Capillary refill: <2 Seconds Gastrointestinal: Normal bowel sounds, No tenderness Musculoskeletal: No tenderness Integumentary: No rashes Neurological: Normal speech, Normal strength at 5/5 x4 extr, Normal tone, Normal affect - Studies Laboratory Data (last 24 hrs) 10/15/21 19:00: PT 12.4, INR 1.08 10/15/21 19:00: WBC 8.60, Hgb 10.1 L, Hct 30.1 L, Plt Count 162 10/15/21 19:00: Sodium 139, Potassium 4.3, BUN 37 H, Creatinine 8.76 H*, Glucose 213 H Assessment and Plan - Plan Assessment: Dyspnea, orthopnea secondary to ESRD on HD MWF with volume overload Diabetes type 2insulin-dependent Hypertension Hyperlipidemia History of CAD Plan: Dyspnea, orthopnea secondary to ESRD on HD MWF with volume overload: Discussed case with nephrology plan is for dialysis tomorrow morning. Obtain and continue home medication, monitor on telemetry. Appreciate further input from nephrology. Diabetes type 2insulin-dependent: ACH S Accu-Chek, sliding scale insulin. Obtain continue home medication. Hypertension: Obtain and continue medication, as needed hydralazine Hyperlipidemia: Obtain and continue medications History of CAD: Obtain and continue medications DVT PPX: heparin Code status: Full code Discharge Plan: Home Plan to discharge in: 24 Hours - Advance Directives Does patient have a Living Will: No Does patient have a Durable POA for Healthcare: No - Code Status/Comfort Care Code Status Assessed: Yes (Full) Critical Care: No Time Spent Managing Pts Care (In Minutes): 55
[2021-10-15 21:41] LABS: ALT/SGPT 23 U/L (12-78); AST/SGOT 18 U/L (15-37); Albumin 3.3 g/dL (3.4-5.0); Alkaline Phosphatase 91 U/L (45-117); Bilirubin Total 0.3 mg/dL (0.2-1.0); Magnesium 2.3 mg/dL (1.8-2.4); NT PRO-BNP 47255 pg/mL (<125); Protein, Total 7.6 g/dL (6.4-8.2)
[2021-10-15 21:43] LABS: Bilirubin Direct < 0.1 mg/dL (0-0.2)
[2021-10-15] MEDS: INSULIN -REGULAR HUMAN 50 UNIT/0.5 ML ML SQ SCH (22:05)
[2021-10-15] MEDS ORDERED: ONDANSETRON 4 MG/2 ML VIAL IV PRN (22:05)
[2021-10-15] MEDS ORDERED: NA CHLORIDE 0.9% 1,000 ML IV PRN (22:16)
[2021-10-15] MEDS ORDERED: MANNITOL 25% 12.5 GM/50 ML VIAL IV PRN (22:16)
[2021-10-15] MEDS: HEPARIN 5000 UNIT/ML 1 ML VIAL SQ SCH (22:21)
[2021-10-15] MEDS ORDERED: HEPARIN 5000 UNIT/ML 1 ML VIAL ONE (22:21)
[2021-10-15] MEDS: HYDRALAZINE HCL 20 MG/ML VIAL IV PRN (22:25)
[2021-10-15] MEDS ORDERED: HYDRALAZINE HCL 20 MG/ML VIAL ONE (22:27)
[2021-10-15 22:37] VITALS: BMI 33.0
[2021-10-15] MEDS ORDERED: ALBUMIN HUMAN 25% 50 ML IV SCH (23:00)
[2021-10-16 03:20] LABS: Absolute Lymphocytes (CBC) 1.9 K/uL (0.7-4.9); Hematocrit 27.2 % (39.6-49.0); MPV 8.7 fL (7.6-11.3); RBC Red Blood Cell Count 3.17 M/uL (4.33-5.43)
[2021-10-16 03:37] LABS: Bilirubin Total 0.3 mg/dL (0.2-1.0); Protein, Total 6.9 g/dL (6.4-8.2)
[2021-10-16 03:40] LABS: Troponin High Sensitivity 62.7 pg/mL (<58.9)
[2021-10-16] MEDS ORDERED: HYDRALAZINE HCL 20 MG/ML VIAL ONE ×2 (04:41→08:39)
[2021-10-16 07:04] LABS: Urine Appearance CLEAR (Clear); Urine Bilirubin NEGATIVE (Negative); Urine Blood 1+ (Negative); Urine Color YELLOW (Yellow); Urine Glucose 1+ (Negative); Urine Protein 3+ (Negative); Urine Urobilinogen 0.2 mg/dL (0.2-1.0); Urine pH 7.5 (5.0-7.0)
[2021-10-16 07:14] LABS: Urine Microscopic Reflex ORDER UMIC
[2021-10-16] MEDS ORDERED: LIDOCAINE/PRILOCAINE CREAM TOP PRN (07:21)
[2021-10-16 07:27] LABS: Urine Bacteria NONE SEEN /HPF (NONE SEEN); Urine RBC <5 /HPF (NONE SEEN)
[2021-10-16] MEDS: INSULIN -REGULAR HUMAN 50 UNIT/0.5 ML ML SQ SCH ×3 (07:30→16:04)
[2021-10-16] MEDS ORDERED: HEPARIN 5000 UNIT/ML 1 ML VIAL ONE (08:33)
[2021-10-16] MEDS: HEPARIN 5000 UNIT/ML 1 ML VIAL SQ SCH ×2 (08:45→20:48)
[2021-10-16] MEDS: HYDRALAZINE HCL 20 MG/ML VIAL IV PRN (08:45)
--- NOTE | 2021-10-16 09:10 | EKG ---
Test Date: 2021-10-15 Test Time: 18:55:55 Senior Cyber Intelligence Analyst: ANJELICA MEASUREMENT RESULTS: Intervals: Rate: 71 NE: 152 QRSD: 104 QT: 444 QTc: 482 [place]: P: 3 NE: 152 QRS: -27 T: 120 INTERPRETIVE STATEMENTS: Normal sinus rhythm Voltage criteria for left ventricular hypertrophy T wave abnormality, consider lateral ischemia Prolonged QT Abnormal ECG Compared to ECG 11/11/2018 08:22:42 No significant changes Electronically Signed On 10-16-21 09:09:02 STRAP MAKER by Brant Andujar
[2021-10-16 10:59] VITALS: O2SAT 95
[2021-10-16 16:28] VITALS: TEMP 98.8
--- NOTE | 2021-10-16 16:33 | P.PN ---
Date of Service: 10/16/21 Subjective: No significant change since admission last night No new symptoms ROS: 10 point ROS as noted above, otherwise negative Physical exam GEN: Alert, oriented, NAD HEENT: Normal conjunctiva, sclera anicteric CV: Regular rate and rhythm, trace b/l pedal edema Pulm: Diminished at bases, bilateral crackles, mildly labored respiration ABD: Soft, nontender, nondistended Integumentary: No rashes Neuro: Normal speech, normal affect Problem List Dyspnea, orthopnea secondary to ESRD on HD MWF with volume overload Diabetes type 2insulin-dependent Hypertension Hyperlipidemia History of CAD Plan for dialysis today Patient remains afebrile, no leukocytosis, slight seem to have infectious etiology Suspect this is all due to volume overload/pulmonary edema secondary to ESRD Patient denies missing any medications Nephrology consulted Continue home medications Code: Full Dispo: Possible discharge home today, pending dialysis Time Spent Managing Pts Care (In Minutes): 35
--- NOTE | 2021-10-16 20:07 | P.CNS ---
Date of Consult: 10/16/21 Reason for Consult: ESRD Requesting Physician: León Duong Chief Complaint: Dyspnea History of Present Illness: 51-year-old male with history of ESRD on HD MWF, diabetes mellitus type 2insulin-dependent, hypertension, hyperlipidemia and coronary artery disease presents emergency department for dyspnea, orthopnea. Patient had dialysis today 3.5 hours completed tolerated well at home there is that he was dyspneic, especially when lying down. Patient presented to the emergency department for evaluation his labs were significant for creatinine 8.76 potassium 4.3 BUN 37 glucose 213 Covid test negative chest x-ray demonstrates bilateral pulmonary opacities suspect volume overload. Case was discussed with patient's cosmetic counselor who recommended observation admit and dialysis in the morning, reports he would be unable to get dialysis performed on outpatient basis tomorrow therefore will need to stay overnight, will rule out ACS and have patient dialyzed. 19:18 This 51 yrs old Male presents to ER via EMS with complaints of sob afterlaying ryan jose after dialysis. 19:18 The patient has shortness of breath with light activity, that woke him/her from sleep. ryan Onset: The symptoms/episode began/occurred just prior to arrival. Duration: The symptoms are continuous, and are steadily getting worse. The patient's shortness of breath is aggravated by supine position, is alleviated by sitting up, application of supplemental oxygen. esrd on hd , 3 1/2 today aglieco. Severity of symptoms: At their worst the symptoms were moderate in the emergency department the symptoms have improved mildly. Onset: The symptoms/episode began/occurred just prior to arrival. The patient has experienced similar episodes in the past, several times. Allergies No Known Allergies Allergy (Verified 10/15/21 21:49) Home medications list reviewed: Yes Home Medications: Atorvastatin Calcium [Lipitor*] 40 mg PO BEDTIME 11/10/18 Calcium Acetate [Phoslo*] 1 tab PO TIDWM 11/10/18 Metoprolol Tartrate 25 mg PO BID 11/10/18 Vit B Comp No.3/Folic/C/Biotin [Highway Painter-Jadiel Rx Tablet] 1 tab PO DAILY 11/10/18 lisinopriL [Lisinopril] 20 mg PO DAILY 11/10/18 Amlodipine Besylate [Norvasc] 10 mg PO 10/15/21 Insulin Degludec [Tresiba] 20 units SQ DAILY 10/15/21 Linagliptin [Tradjenta] 5 mg PO DAILY 10/15/21 Vit D3/Vit K2/Calc Frutoborate [Move Free Mitse-Spnwds-V2-D3] 3,000 mg PO 10/15/21 - Past Medical/Surgical History Diabetic: Yes -: HTN -: HLD -: ESRD on HD -: NIDDM -: Hx of [place] -: Port-A-Cath Right Chest Wall Psychosocial/ Personal History: Lives at home with family - Social History Smoking Status: Unknown if ever smoked Alcohol use: Yes CD- Drugs: No Caffeine use: Yes Place of Residence: Home Review of Systems 10-point ROS is otherwise unremarkable General: Weakness Respiratory: SOB with Excertion Physical Examination Temp Pulse Resp BP Pulse Ox 98.8 F 75 16 183/81 H 99 10/16/21 16:00 10/16/21 16:00 10/16/21 16:00 10/16/21 16:00 10/16/21 16:00 General: In no apparent distress, Cooperative HEENT: Atraumatic Neck: Supple Respiratory: Clear to auscultation bilaterally Cardiovascular: No edema, Regular rate/rhythm Gastrointestinal: Soft and benign, Non-distended Musculoskeletal: No clubbing, No contractures Integumentary: No rashes, No cyanosis Neurological: Normal speech Laboratory Data (last 24 hrs) 10/15/21 19:00: Creatinine 8.76 H*, Magnesium 2.3, Total Bilirubin 0.3, AST 18, ALT 23, Alkaline Phosphatase 91 Imagings Data: EXAM DESCRIPTION: Pablo Single View10/15/2021 7:30 pm CLINICAL HISTORY: Chest pain COMPARISON: 2019 FINDINGS: Mild bilateral pulmonary opacities. Heart is mildly enlarged. IMPRESSION: Mild bilateral pulmonary opacities may indicate pneumonia Conclusions/Impression: ESRD Proteinuria -Acute HD today -Seen on HD HTN with CKD/ CHF -Restart Lisinopril and Amlodipine Diastolic CHF, A/C -HD with UF DM II with CKD -RISS Anemia in CKD -Retacrit X1 CKD MBD -Start Phoslo -Start Vitamin D Case discussed with Dr. Duong Thank you kindly for the consultation.
--- NOTE | 2021-10-16 20:46 | P.DS ---
Admission Date: 10/15/21 Discharge Date: 10/16/21 Disposition: ROUTINE DISCHARGE Discharge Condition: GOOD Reason for Admission: Dyspnea Consultations: Nephrology- Dr. Shepherd Procedures: Chest x-ray FINDINGS: Mild bilateral pulmonary opacities. Heart is mildly enlarged. IMPRESSION: Mild bilateral pulmonary opacities may indicate pneumonia Problem list Dyspnea, orthopnea secondary to ESRD on HD MWF with volume overload Diabetes type 2insulin-dependent Hypertension Hyperlipidemia History of CAD Brief History of Present Illness: 51-year-old male with history of ESRD on HD MWF, diabetes mellitus type 2insulin-dependent, hypertension, hyperlipidemia and coronary artery disease presents emergency department for dyspnea, orthopnea. Patient had dialysis today 3.5 hours completed tolerated well at home there is that he was dyspneic, especially when lying down. Patient presented to the emergency department for evaluation his labs were significant for creatinine 8.76 potassium 4.3 BUN 37 glucose 213 Covid test negative chest x-ray demonstrates bilateral pulmonary opacities suspect volume overload. Case was discussed with patient's lighting technician who recommended observation admit and dialysis in the morning, reports he would be unable to get dialysis performed on outpatient basis tomorrow therefore will need to stay overnight, will rule out ACS and have patient dialyzed. Hospital Course: Patient was admitted with volume overload, completed a session of dialysis today and is feeling much better at this time. Cleared by nephrology. Will be discharged home to follow-up with nephrology as scheduled for outpatient dialysis. Vital Signs/Physical Exam: Temp Pulse Resp BP Pulse Ox 98.8 F 75 16 183/81 H 99 10/16/21 16:00 10/16/21 16:00 10/16/21 16:00 10/16/21 16:00 10/16/21 16:00 General: Alert, In no apparent distress HEENT: Atraumatic, PERRLA, EOMI Neck: Supple, JVD not distended Respiratory: Clear to auscultation bilaterally, Normal air movement Cardiovascular: Regular rate/rhythm, Normal S1 S2 Gastrointestinal: Normal bowel sounds, No tenderness Musculoskeletal: No tenderness Integumentary: No rashes Neurological: Normal speech, Normal tone, Normal affect Lymphatics: No axilla or inguinal lymphadenopathy Laboratory Data at Discharge: WBC 6.60 K/uL (4.3-10.9) D 10/16/21 02:47 Hgb 9.3 g/dL (13.6-17.9) L 10/16/21 02:47 Hct 27.2 % (39.6-49.0) L 10/16/21 02:47 Plt Count 153 K/uL (152-406) 10/16/21 02:47 PT 12.4 SECONDS (9.5-12.5) 10/15/21 19:00 INR 1.08 10/15/21 19:00 Sodium 140 mmol/L (136-145) 10/16/21 02:47 Potassium 4.0 mmol/L (3.5-5.1) 10/16/21 02:47 BUN 42 mg/dL (7-18) H 10/16/21 02:47 Creatinine 9.61 mg/dL (0.55-1.3) H* 10/16/21 02:47 Glucose 110 mg/dL (74-106) H 10/16/21 02:47 Magnesium 2.3 mg/dL (1.8-2.4) 10/15/21 19:00 Total Bilirubin 0.3 mg/dL (0.2-1.0) 10/16/21 02:47 AST 15 U/L (15-37) 10/16/21 02:47 ALT 19 U/L (12-78) 10/16/21 02:47 Alkaline Phosphatase 75 U/L (45-117) 10/16/21 02:47 Home Medications: Atorvastatin Calcium [Lipitor*] 40 mg PO BEDTIME 11/10/18 Calcium Acetate [Phoslo*] 1 tab PO TIDWM 11/10/18 Metoprolol Tartrate 25 mg PO BID 11/10/18 Vit B Comp No.3/Folic/C/Biotin [Electrical Construction Project Manager-Jadiel Rx Tablet] 1 tab PO DAILY 11/10/18 lisinopriL [Lisinopril] 20 mg PO DAILY 11/10/18 Amlodipine Besylate [Norvasc] 10 mg PO 10/15/21 Insulin Degludec [Tresiba] 20 units SQ DAILY 10/15/21 Linagliptin [Tradjenta] 5 mg PO DAILY 10/15/21 Vit D3/Vit K2/Calc Frutoborate [Move Free Qdnsy-Kiyipk-V6-D3] 3,000 mg PO 10/15/21 Physician Discharge Instructions: Follow-up in nephrology clinic for scheduled dialysis as instructed by n ephrology. Continue all home medications. Diet: ADA Activity: Ad alexis Followup: Jesús Shepherd DO [ACTIVE - CAN ADMIT] - Dyllan Perez MD [Primary Care Provider] - Time spent managing pt's care (in minutes): 30
[2021-10-16 20:52] VITALS: BP 140/72
[2021-10-16] MEDS ORDERED: lisinopriL 20 MG TAB PO SCH (21:00)
[2021-10-16] MEDS ORDERED: AMLODIPINE 5 MG TAB PO SCH (21:00)
[2021-10-17] MEDS ORDERED: CALCIUM ACETATE 667 MG TAB PO SCH (08:00)
[2021-10-17] MEDS ORDERED: VITAMIN D 5,000 UNIT CAP PO SCH (09:00)
[2021-10-17] MEDS ORDERED: MULTIVITAMINS,THERAPEUT 1 TAB PO SCH (09:00)
[2021-10-17] MEDS ORDERED: CALCITROL 0.25 MCG CAP PO SCH (09:00)
[2021-10-17] MEDS ORDERED: EPOETIN ALFA 10,000 UNIT/ML VIAL SQ SCH (09:00)
== END 2021-10-16 21:00 | disposition home or self-care (01) ==
LOC: ER 18:40 → ERHOLD 20:40 → 4TH 10-16 10:03
PROVIDERS: ADMIT Hospitalist; ATTEND Hospitalist
DX: I12.0 Hypertensive chronic kidney disease with stage 5 chronic kidney disease or end stage renal disease (principal); E11.22 Type 2 diabetes mellitus with diabetic chronic kidney disease; N18.6 End stage renal disease; E78.5 Hyperlipidemia, unspecified; I25.10 Atherosclerotic heart disease of native coronary artery without angina pectoris; Z99.2 Dependence on renal dialysis; Z20.822 Contact with and (suspected) exposure to COVID-19
CPT/HCPCS: 36415; 71045; 80048; 80053; 80076; 81003; 81015; 82947; 83735; 83880; 84484; 85025; 85610; 87086; 87088; 90935; 93005; 96374; 99284; G0378; J0360; J1644; Q5105; U0003

== ENCOUNTER 2022-09-22 03:07 | Inpatient (IN) | payer OTHER ==
[2022-09-22] MEDS ORDERED: ONDANSETRON 4 MG/2 ML VIAL IV PRN (04:18)
[2022-09-22] MEDS ORDERED: MORPHINE 2 MG/ML SYR IV PRN (04:18)
[2022-09-22] MEDS ORDERED: NITROGLYCERIN 0.4 MG/TAB SL PRN (04:18)
--- NOTE | 2022-09-22 04:35 | P.HP ---
Certification for Inpatient Patient admitted to: Inpatient With expected LOS: >2 Midnights Patient will require the following post-hospital care: None Practitioner: I am a practitioner with admitting privileges, knowledge of patient current condition, hospital course, and medical plan of care. Services: Services provided to patient in accordance with Admission requirements found in Title 42 Section 412.3 of the Code of Federal Regulations <Jean Hidalgo - Last Filed: 09/22/22 04:26> Patient History Date of Service: 09/22/22 Reason for admission: NSTEMI History of Present Illness: 1-year-old male with history of ESRD on HD MWF, CAD with previous [place], hypertension, hyperlipidemia, jxq-[id number]-iboibfwkq diabetes presented to outside hospital emergency department with complaint of chest pain that began just prior to arrival radiating to his jaw/arms bilaterally. His EKG had T wave inversions in lateral leads his initial high-sensitivity troponin was 90, troponin was repeated and significant elevated 527. Case was discussed with cardiology who recommended heparin drip, admission to our hospital for further evaluation. Patient does report that he had a heart catheterization approximately 6 months ago at [facility] without stent placement but believes he had some form of angioplasty at that time. Patient is chest pain- free, will admit for further evaluation and management of NSTEMI. - Past Medical/Surgical History Diabetic: Yes -: HTN -: HLD -: ESRD on HD -: NIDDM -: Hx of [place] -: NIDDM -: Port-A-Cath Right Chest Wall -: Left fistula Psychosocial/ Personal History: Lives at home with family - Social History Smoking Status: Current every day smoker Alcohol use: Yes CD- Drugs: No Caffeine use: Yes Place of Residence: Home <Jean Hidalgo - Last Filed: 09/22/22 04:26> Date of Service: 09/22/22 <Peter Collins - Last Filed: 09/22/22 14:58> Allergies No Known Allergies Allergy (Verified 09/22/22 05:07) Home Medications: Aspirin Chewable [Aspirin Chewable*] 81 mg PO DAILY 09/22/22 Atorvastatin Calcium [Lipitor] 40 mg PO DAILY 09/22/22 Calcium Acetate 3 cap PO TID 09/22/22 Carvedilol [Coreg] 25 mg PO BID 09/22/22 Linagliptin [Tradjenta] 5 mg PO DAILY 09/22/22 Nifedipine [Nifedipine ER] 90 mg PO DAILY 09/22/22 buPROPion HCL [Bupropion HCl Sr] 150 mg PO BID 09/22/22 Review of Systems 10-point ROS is otherwise unremarkable Cardiovascular: Chest Pain, As per HPI <Jean Hidalgo - Last Filed: 09/22/22 04:26> Physical Examination - Vital Signs Temperature: 98.2 F Blood Pressure: 157/70 Pulse: 68 Respirations: 17 Pulse Ox (%): 94 - Physical Exam General: Alert, In no apparent distress, Oriented x3 HEENT: Atraumatic, PERRLA, Mucous membr. moist/pink, EOMI, Sclerae nonicteric Neck: Supple, 2+ carotid pulse no bruit, No LAD, Without JVD or thyroid abnormality Respiratory: Clear to auscultation bilaterally, Normal air movement Cardiovascular: Regular rate/rhythm, Normal S1 S2 Capillary refill: <2 Seconds Gastrointestinal: Normal bowel sounds, No tenderness Musculoskeletal: No tenderness Integumentary: No rashes Neurological: Normal speech, Normal strength at 5/5 x4 extr, Normal tone, Normal affect <Jean Hidalgo - Last Filed: 09/22/22 04:26> - Studies Laboratory Data (last 24 hrs) 09/22/22 13:33: APTT 50.8 H 09/22/22 09:23: APTT 55.1 H 09/22/22 04:44: Sodium 137, Potassium 4.3, BUN 98 H, Creatinine 12.90 H*, Glucose 164 H, Triglycerides 85, Cholesterol 87, HDL Cholesterol 31 L, Cholesterol/HDL Ratio 2.81 09/22/22 04:44: WBC 10.40, Hgb 9.7 L, Hct 28.7 L, Plt Count 93 L <Peter Collins - Last Filed: 09/22/22 14:58> Assessment and Plan - Plan Assessment: NSTEMIhistory of CAD ESRD on HD MWF Diabetes mellitus type [id number] Hypertension Hyperlipidemia Plan: NSTEMIhistory of CAD: Continue heparin drip, trend troponins, cardiology consult in place. Echocardiogram ordered. Patient reports last heart catheterization approximately 6 months ago at [facility] with angioplasty, denies stent placement. Continue aspirin, statin, beta-markos, heparin drip. Appreciate further input from cardiology. ESRD on HD MWF: Nephrology consulted last dialysis on Friday, did complete dialysis at the time. Diabetes mellitus type [id number]: ACHS Accu-Chek, sliding scale insulin, A1c in the morning. Hypertension: Home medications continued Hyperlipidemia: Home medications continued DVT PPX: Continue heparin drip Code status:full Discharge Plan: Home Plan to discharge in: 48 Hours - Advance Directives Does patient have a Living Will: No Does patient have a Durable POA for Healthcare: No - Code Status/Comfort Care Code Status Assessed: Yes (Full code) Critical Care: No Time Spent Managing Pts Care (In Minutes): 70 <Jean Hidalgo - Last Filed: 09/22/22 04:26> Physician Review: Patient Assessed, Agree with Above Assessment and Plan Physician Review Additional Text: His troponin has uptrended from 1854.4 -> 4746.2. His EKG reportedly without STEMI criteria. Discussed with Dr. Macias, who recommended continuing heparin drip. Plan for possible left heart catheterization tomorrow morning. We will continue to monitor closely. Peter Collins M.D. <Peter Collins - Last Filed: 09/22/22 14:58>
[2022-09-22 05:00] LABS: Absolute Lymphocytes (CBC) 2.4 K/uL (0.7-4.9); Hematocrit 28.7 % (39.6-49.0); Lymphocytes % 22.7 % (15.3-44.8); MPV 8.8 fL (7.6-11.3); RBC Red Blood Cell Count 3.12 M/uL (4.33-5.43)
[2022-09-22] MEDS ORDERED: HEPARIN/D5W 25,000 UNIT/500 ML BAG IV SCH (05:00)
[2022-09-22 05:24] VITALS: BMI 35.2
[2022-09-22 05:31] LABS: Potassium 4.3 mmol/L (3.5-5.1)
[2022-09-22 05:36] LABS: Troponin High Sensitivity 1854.4 pg/mL (<58.9)
[2022-09-22] MEDS: carvediloL 25 MG TAB PO SCH ×2 (05:59→17:42)
[2022-09-22] MEDS: INSULIN -REGULAR HUMAN 50 UNIT/0.5 ML ML SQ SCH ×4 (07:30→20:28)
[2022-09-22] MEDS: NIFEDIPINE XL 90 MG TABLET PO SCH (09:10)
[2022-09-22] MEDS: ASPIRIN EC 81 MG TAB PO SCH (09:10)
--- NOTE | 2022-09-22 11:19 | P.CNS ---
Date of Consult: 09/22/22 Reason for Consult: ESRD Requesting Physician: Peter Collins Chief Complaint: NSTEMI History of Present Illness: 52-year-old male with history of ESRD on HD MWF, CAD with previous [place], hypertension, hyperlipidemia, udl-bjwidbs-dfpyiccep diabetes presented to outside hospital emergency department with complaint of chest pain that began just prior to arrival radiating to his jaw/arms bilaterally. His EKG had T wave inversions in lateral leads his initial high-sensitivity troponin was 90, troponin was repeated and significant elevated 527. Case was discussed with cardiology who recommended heparin drip, admission to our hospital for further evaluation. Patient does report that he had a heart catheterization approximately 6 months ago at [facility] without stent placement but believes he had some form of angioplasty at that time. Patient is chest pain- free, will admit for further evaluation and management of NSTEMI. Allergies No Known Allergies Allergy (Verified 09/22/22 05:07) Home medications list reviewed: Yes Home Medications: Aspirin Chewable [Aspirin Chewable*] 81 mg PO DAILY 09/22/22 Atorvastatin Calcium [Lipitor] 40 mg PO DAILY 09/22/22 Calcium Acetate 3 cap PO TID 09/22/22 Carvedilol [Coreg] 25 mg PO BID 09/22/22 Linagliptin [Tradjenta] 5 mg PO DAILY 09/22/22 Nifedipine [Nifedipine ER] 90 mg PO DAILY 09/22/22 buPROPion HCL [Bupropion HCl Sr] 150 mg PO BID 09/22/22 - Past Medical/Surgical History Diabetic: Yes -: HTN -: HLD -: ESRD on HD (Dr. Shepherd) -: NIDDM -: CAD/ Hx [place] -: Port-A-Cath Right Chest Wall -: Left fistula Psychosocial/ Personal History: Lives at home with family - Social History Smoking Status: Unknown if ever smoked Alcohol use: No CD- Drugs: No Caffeine use: No Place of Residence: Home Review of Systems 10-point ROS is otherwise unremarkable Cardiovascular: Chest Pain Physical Examination Temp Pulse Resp BP Pulse Ox 97.7 F 71 16 166/57 H 93 09/22/22 08:00 09/22/22 09:10 09/22/22 08:00 09/22/22 09:10 09/22/22 08:00 General: In no apparent distress, Oriented x3, Cooperative HEENT: Atraumatic Neck: Supple Respiratory: Clear to auscultation bilaterally Cardiovascular: Regular rate/rhythm, Edema Gastrointestinal: Soft and benign, Non-distended Musculoskeletal: No clubbing, No contractures Integumentary: No rashes, No cyanosis Neurological: Normal speech Laboratory Data (last 24 hrs) 09/22/22 09:23: APTT 55.1 H 09/22/22 04:44: Sodium 137, Potassium 4.3, BUN 98 H, Creatinine 12.90 H*, Glucose 164 H, Triglycerides 85, Cholesterol 87, HDL Cholesterol 31 L, Cholesterol/HDL Ratio 2.81 09/22/22 04:44: WBC 10.40, Hgb 9.7 L, Hct 28.7 L, Plt Count 93 L Conclusions/Impression: ESRD on HD MWF -Acute HD ordered for Friday HTN with CKD/ CHF -Continue Coreg and Nifedipine Diastolic CHF, chronic -Acute HD with UF DM II with CKD -RISS Anemia in CKD -Start Retacrit CKD MBD -Start Ergo -Start Renvela Case reviewed with Dr. Collins Thank you kindly for the consultation
[2022-09-22] MEDS ORDERED: MANNITOL 25% 12.5 GM/50 ML VIAL IV PRN (19:13)
[2022-09-22] MEDS ORDERED: NA CHLORIDE 0.9% 1,000 ML IV PRN (19:13)
[2022-09-22] MEDS ORDERED: DRISDOL (VITAMIN D=ERGOCALCIFEROL) 50000 UNIT CAP PO SCH (20:00)
[2022-09-22] MEDS ORDERED: ALBUMIN HUMAN 25% 50 ML IV SCH (20:00)
[2022-09-22] MEDS: ATORVASTATIN 40 MG TAB PO SCH (20:28)
[2022-09-22] MEDS: DOCUSATE NA 100 MG CAP PO SCH (20:28)
[2022-09-23] MEDS: carvediloL 25 MG TAB PO SCH ×2 (05:47→22:12)
[2022-09-23] MEDS: ASPIRIN EC 81 MG TAB PO SCH (05:47)
[2022-09-23 06:20] LABS: Absolute Lymphocytes (CBC) 1.6 K/uL (0.7-4.9); Hematocrit 27.2 % (39.6-49.0); Lymphocytes % 16.5 % (15.3-44.8); MCV 91.2 fL (80-100); MPV 9.4 fL (7.6-11.3); RBC Red Blood Cell Count 2.98 M/uL (4.33-5.43)
[2022-09-23 06:29] LABS: Potassium 4.8 mmol/L (3.5-5.1)
[2022-09-23] MEDS ORDERED: HEPA 1000U/500MLS 2,000 UNIT/1,000 ML BAG IV ONE (06:39)
[2022-09-23] MEDS ORDERED: LIDOCAINE 1% 20 ML MDV ONE ×2 (06:39→07:18)
[2022-09-23] MEDS ORDERED: FENTANYL CITR 100 MCG/2 ML ONE (06:39)
[2022-09-23] MEDS ORDERED: CLOPIDOGREL 75 MG TABLET ONE (06:40)
[2022-09-23] MEDS ORDERED: HEPARIN 5000 UNIT/ML 1 ML VIAL ONE (06:40)
[2022-09-23] MEDS ORDERED: MIDAZOLAM HCL 2 MG/2 ML INJ ONE (06:40)
[2022-09-23] MEDS ORDERED: ASPIRIN 325 MG TAB ONE (06:40)
[2022-09-23] MEDS ORDERED: VERAPAMIL HCL 10 MG/4 ML VIAL IV ONE (06:40)
[2022-09-23] MEDS ORDERED: TICAGRELOR 90 MG TABLET PO ONE (06:41)
[2022-09-23] MEDS ORDERED: HEPARIN 10,000 UNIT/10 ML VIAL IV ONE (06:41)
[2022-09-23] MEDS ORDERED: ATROPINE SULF 1 MG/10 ML SYR IV ONE (06:41)
[2022-09-23] MEDS ORDERED: NITROGLYCERIN 100 MCG/ML SYR (for cath lab use only) IV ONE (06:41)
[2022-09-23] MEDS ORDERED: NITROGLYCERIN/D5W 25 MG/250 ML BTL IV ONE (06:41)
[2022-09-23] MEDS ORDERED: NA CHLORIDE 0.9% 500 ML ONE (06:44)
[2022-09-23 07:19] LABS: Blood Morphology Comment NOT SEEN (NOT SEEN); Platelet Estimate DECR; White Blood Cell Scan OK (OK)
[2022-09-23] MEDS: INSULIN -REGULAR HUMAN 50 UNIT/0.5 ML ML SQ SCH ×4 (07:30→21:00)
[2022-09-23] MEDS: SEVELAMER CARBONATE 800 MG TABLET PO SCH ×3 (08:00→17:00)
[2022-09-23] MEDS: MULTIVITAMINS,THERAPEUT 1 TAB PO SCH (09:00)
[2022-09-23] MEDS ORDERED: DRISDOL (VITAMIN D=ERGOCALCIFEROL) 50000 UNIT CAP PO SCH (09:00)
[2022-09-23] MEDS: DOCUSATE NA 100 MG CAP PO SCH ×2 (09:00→22:10)
--- NOTE | 2022-09-23 11:07 | P.PN ---
Date of Service: 09/23/22 Vital Signs Temp Pulse Resp BP Pulse Ox 97 F 66 13 139/45 L 94 09/23/22 09:25 09/23/22 10:10 09/23/22 10:10 09/23/22 10:10 09/23/22 04:00 Medications Aspirin (Aspirin Ec 81 Mg Tab) 81 mg PO DAILY [facility] Last Admin: 09/23/22 05:47 Dose: 81 mg Atorvastatin Calcium (Atorvastatin 40 Mg Tab) 40 mg PO BEDTIME [facility] Last Admin: 09/22/22 20:28 Dose: 40 mg Carvedilol (Carvedilol 25 Mg Tab) 25 mg PO BID 6AM 6PM [facility] Last Admin: 09/23/22 05:47 Dose: Not Given Docusate Sodium (Docusate Na 100 Mg Cap) 100 mg PO BID [facility] Last Admin: 09/23/22 09:00 Dose: Not Given Epoetin Maciel (Epoetin Maciel 10,000 Unit/Ml Vial) 10,000 unit SQ M,W,F@1700 [facility] Ergocalciferol (Drisdol (Vitamin D=Ergocalciferol) 01669 Unit Cap) 50,000 unit PO Q7D [facility] Heparin Sodium (Porcine) (Heparin 1,000 Unit/Ml Vial) 6,000 unit IV EVERY HD PRN PRN Reason: AFTER EACH Albumin Human (Albumin 25%) 50 mls @ 100 mls/hr IV EVERY HD [facility] Insulin Human Regular (Insulin -Regular Human 50 Unit/0.5 Ml Ml) 0 unit SQ ACHS [facility]; Protocol Last Admin: 09/23/22 07:30 Dose: Not Given Mannitol (Mannitol 25% 12.5 Gm/50 Ml Vial) 12.5 gm IV EVERY HD PRN; Protocol PRN Reason: BP support at hemodialysis Morphine Sulfate (Morphine 2 Mg/Ml Syr) 2 mg IV Q6H PRN PRN Reason: Pain scale 8-10 (Severe) Nifedipine (Nifedipine Xl 90 Mg Tablet) 90 mg PO DAILY [facility] Last Admin: 09/22/22 09:10 Dose: 90 mg Nitroglycerin (Nitroglycerin 0.4 Mg/Tab) 0.4 mg SL UD PRN PRN Reason: Pain scale 2-4 (Mild) Ondansetron HCl (Ondansetron 4 Mg/2 Ml Vial) 4 mg IV Q6HP PRN PRN Reason: NAUSEA / VOMITING Last Admin: 09/22/22 08:00 Dose: 4 mg Sevelamer Carbonate (Sevelamer Carbonate 800 Mg Tablet) 800 mg PO TIDWM [facility] Last Admin: 09/23/22 08:00 Dose: Not Given Sodium Chloride (Flush Normal Saline 10 Ml) 10 ml IV BID [facility] Last Admin: 09/22/22 20:28 Dose: 10 ml Ticagrelor (Ticagrelor 90 Mg Tablet) 90 mg PO BID [facility] Vitamin B Complex/Vit C/Folic Acid (Multivitamins,Therapeut 1 Tab) 1 tab PO DAILY [facility] Last Admin: 09/23/22 09:00 Dose: Not Given Lab Results (last 24 hrs) 09/23/22 : APTT Cancelled 09/23/22 05:49: APTT 34.0 09/23/22 05:49: Sodium 136, Potassium 4.8, Chloride 95 L, Carbon Dioxide 26, Anion Gap 19.8 H, BUN 116 H, Creatinine 15.20 H*, Est GFR (CKD-EPI) 3 L, Glucose 194 H, Calcium 8.5 09/23/22 05:49: WBC 9.60, RBC 2.98 L, Hgb 9.4 L, Hct 27.2 L, MCV 91.2, MCH 31.4, MCHC 34.4, RDW 15.0, Plt Count 84 L, MPV 9.4, Neutrophils % 73.9 H, Lymphocytes % 16.5, Monocytes % 7.6, Eosinophils % 1.4, Basophils % 0.6, Absolute Neutrophils 7.1, Absolute Lymphocytes 1.6, Absolute Monocytes 0.7, Absolute Eosinophils 0.1, Absolute Basophils 0.1, Platelet Estimate Decr, Morphology Comment Not seen, Smear Scan Ok 09/23/22 03:00: Troponin I High Sens Cancelled 09/22/22 21:09: Troponin I High Sens 7100.9 H* 09/22/22 20:26: POC Glucose 250 H 09/22/22 15:35: Troponin I High Sens 8516.2 H* 09/22/22 15:32: POC Glucose 137 H 09/22/22 13:33: APTT 50.8 H 09/22/22 11:34: POC Glucose 204 H 09/22/22 09:23: Hemoglobin A1c 6.5 H Assessment/ Plan: Nephrology No dyspnea No chest pain Cardiac cath this morning No acute events overnight General: In no apparent distress, Oriented x3, Cooperative HEENT: Atraumatic Neck: Supple Respiratory: Clear to auscultation bilaterally Cardiovascular: Regular rate/rhythm, Edema Gastrointestinal: Soft and benign, Non-distended Musculoskeletal: No clubbing, No contractures Integumentary: No rashes, No cyanosis Neurological: Normal speech Laboratory Data (last 24 hrs) 09/22/22 09:23: APTT 55.1 H 09/22/22 04:44: Sodium 137, Potassium 4.3, BUN 98 H, Creatinine 12.90 H*, Glucose 164 H, Triglycerides 85, Cholesterol 87, HDL Cholesterol 31 L, Cholesterol/HDL Ratio 2.81 09/22/22 04:44: WBC 10.40, Hgb 9.7 L, Hct 28.7 L, Plt Count 93 L Conclusions/Impression: ESRD on HD MWF -Acute HD ordered for Friday HTN with CKD/ CHF -Continue Coreg and Nifedipine Diastolic CHF, chronic -Acute HD with UF DM II with CKD -RISS Anemia in CKD -Continue Retacrit CKD MBD -Continue Ergo -Continue Renvela CAD with chest pain -Cardiac cath this morning with RCA stent
[2022-09-23] MEDS ORDERED: EPOETIN ALFA 10,000 UNIT/ML VIAL SQ SCH (17:00)
[2022-09-23] MEDS ORDERED: METOPROLOL TARTRATE 5 MG/5 ML INJ IV PRN (18:59)
[2022-09-23] MEDS ORDERED: DIGOXIN 0.25 MG/ML AMP IV ONE (19:03)
[2022-09-23] MEDS: ATORVASTATIN 40 MG TAB PO SCH (22:10)
--- NOTE | 2022-09-24 01:58 | P.PN ---
Subjective Date of Service: 09/23/22 Patient doing well. Status post right coronary artery stent placement. Patient also in atrial fibrillation. Status post digoxin and IV Lopressor. Hopefully heart rate is better controlled. Will start oral digoxin Friday and Fridays. Review of Systems 10-point ROS is otherwise unremarkable Physical Examination - Vital Signs Temperature: 97.7 F Blood Pressure: 157/84 Pulse: 104 Respirations: 18 Pulse Ox (%): 98 - Physical Exam General: Alert, In no apparent distress HEENT: Atraumatic, PERRLA, EOMI Neck: Supple, JVD not distended Respiratory: Clear to auscultation bilaterally, Normal air movement Cardiovascular: Regular rate/rhythm, Normal S1 S2 Gastrointestinal: Normal bowel sounds, No tenderness Musculoskeletal: No tenderness Integumentary: No rashes Neurological: Normal speech, Normal tone, Normal affect Lymphatics: No axilla or inguinal lymphadenopathy - Studies Laboratory Data (last 24 hrs) 09/24/22 05:00: Sodium Cancelled, Potassium Cancelled, BUN Cancelled, Creatinine Cancelled, Glucose Cancelled 09/24/22 05:00: WBC Cancelled, Hgb Cancelled, Hct Cancelled, Plt Count Cancelled 09/23/22 05:49: APTT 34.0 09/23/22 05:49: Sodium 136, Potassium 4.8, BUN 116 H, Creatinine 15.20 H*, Glucose 194 H 09/23/22 05:49: WBC 9.60, Hgb 9.4 L, Hct 27.2 L, Plt Count 84 L Medications List Reviewed: Yes Assessment & Plan - Problems (Diagnosis) (1) Non-STEMI (non-ST elevated myocardial infarction) Current Visit: Yes Status: Acute (2) Atrial fibrillation Current Visit: Yes Status: Acute (3) Diabetes mellitus Current Visit: No Status: Acute Qualifiers: Diabetes mellitus type: type 2 Diabetes mellitus termination clerk insulin use: without half-way use Diabetes mellitus complication status: without complication Qualified Code(s): E11.9 - Type 2 diabetes mellitus without complications (4) ESRD (end stage renal disease) on dialysis Current Visit: No Status: Chronic (5) HLD (hyperlipidemia) Current Visit: No Status: Chronic Qualifiers: Hyperlipidemia type: unspecified Qualified Code(s): E78.5 - Hyperlipidemia, unspecified (6) HTN (hypertension) Current Visit: No Status: Chronic Qualifiers: Hypertension type: essential hypertension Qualified Code(s): I10 - Essential (primary) hypertension - Plan Plan: 1. Continue with anti-platelet therapy and statin therapy 2. Continue with medication for rate control 3. Discussed with Cardiology regarding anticoagulation 4. Hemodialysis per Nephrology 5. Strict blood pressure and blood sugar control 6. Gi and DVT prophylaxis Discharge Plan: Home Plan to discharge in: Greater than 2 days - Advance Directives Does patient have a Living Will: No Does patient have a Durable POA for Healthcare: No - Code Status/Comfort Care Code Status Assessed: Yes Code Status: Full Code Physician Review: Patient Assessed, Agree with Above Assessment and Plan Critical Care: No Time Spent Managing PTS Care (In Minutes): 35
[2022-09-24] MEDS: carvediloL 25 MG TAB PO SCH (06:10)
[2022-09-24 06:46] LABS: Absolute Lymphocytes (CBC) 1.5 K/uL (0.7-4.9); Hematocrit 26.5 % (39.6-49.0); Lymphocytes % 21.5 % (15.3-44.8); MCV 90.8 fL (80-100); MPV 9.1 fL (7.6-11.3); RBC Red Blood Cell Count 2.92 M/uL (4.33-5.43)
--- NOTE | 2022-09-24 07:06 | ECHO ---
HEIGHT: 5 ft 7 in WEIGHT: 225 lb 4.8 oz DATE OF STUDY: 09/23/[address]: Jean Hidalgo NP 2-DIMENSIONAL: YES M.MODE: YES DOPPLER: YES COLOR FLOW: YES TDS: PORTABLE: YES DEFINITY: BUBBLE STUDY: DIAGNOSIS: NON ST ELEVATION MYOCARDIAL INFARCTION CARDIAC HISTORY: CATHERIZATION: YES SURGERY: PROSTHETIC VALVE: PACEMAKER: MEASUREMENTS (cm) DIASTOLIC (NORMALS) SYSTOLIC (NORMALS) IVSd 1.6 (0.6-1.2) LA Diam 4.1 (1.9-4.0) LVEF 55% LVIDd 5.3 (3.5-5.7) LVIDs 4.3 (2.0-3.5) %FS % LVPWd 1.5 (0.6-1.2) Ao Diam 2.9 (2.0-3.7) 2 DIMENSIONAL ASSESSMENT: RIGHT ATRIUM: NORMAL LEFT ATRIUM: ENLARGED RIGHT VENTRICLE: NORMAL LEFT VENTRICLE: LEFT VENTRICULAR HYPERTROPHY TRICUSPID VALVE: MILD TRICUSPID REGURGITATION MITRAL VALVE: MODERATE MITRAL REGURGITATION PULMONIC VALVE: NORMAL AORTIC VALVE: MILD AORTIC INSUFFICIECNY PERICARDIAL EFFUSION: NONE AORTIC ROOT: NORMAL LEFT VENTRICULAR WALL MOTION: NORMAL DOPPLER/COLOR FLOW: SEE BELOW COMMENTS: 1. NORMAL LEFT VENTRICULAR EJECTION FRACTION 55-60% 2. NORMAL WALL MOTION 3. LEFT ATRIAL ENLARGEMENT 4. MODERATE MITRAL REGURGITATION 5. MILD TRICUSPID REGURGITATION 6. MILD AORTIC INSUFFICIENCY 7. MODERATE DIASTOLIC DYSFUNCTION TECHNOLOGIST: JUAN R TRAMMELL
[2022-09-24 07:10] LABS: Magnesium 2.7 mg/dL (1.6-2.4); Potassium 4.5 mmol/L (3.5-5.1); Thyroid Stimulating Hormone 0.894 uIU/mL (0.358-3.740)
[2022-09-24] MEDS: INSULIN -REGULAR HUMAN 50 UNIT/0.5 ML ML SQ SCH ×2 (07:30→11:13)
[2022-09-24] MEDS ORDERED: HYDRALAZINE HCL 20 MG/ML VIAL IV PRN (07:50)
[2022-09-24 08:49] VITALS: O2SAT 96
[2022-09-24] MEDS: ASPIRIN EC 81 MG TAB PO SCH (10:02)
[2022-09-24] MEDS: SEVELAMER CARBONATE 800 MG TABLET PO SCH ×2 (10:03→12:46)
[2022-09-24] MEDS: MULTIVITAMINS,THERAPEUT 1 TAB PO SCH (10:03)
[2022-09-24] MEDS: DOCUSATE NA 100 MG CAP PO SCH (10:03)
[2022-09-24] MEDS: NIFEDIPINE XL 90 MG TABLET PO SCH (10:21)
[2022-09-24 11:41] VITALS: TEMP 97.3
[2022-09-24] MEDS ORDERED: LOSARTAN POTASSIUM 50 MG TABLET PO SCH (12:00)
[2022-09-24 16:21] VITALS: BP 109/53
--- NOTE | 2022-09-24 17:32 | OP ---
Date of Procedure: 09/23/2022 Surgeon: ADELAIDA JOSEPH Procedures Performed: 1.Selective coronary angiogram. 2.PCI of severe mid RCA stenosis, 99%, which is a culprit. I used 2.5 x 60 mm Synergy drug-eluting stent. Indication: Non-ST elevation myocardial infarction. Access: Right femoral artery 6-[place] closed with manual pressure. Complications: None. Bleeding: Less than 20 mL. Description Of Procedure: After risks, benefits, alternatives were explained, the patient agreed to the procedure and signed informed consent. The patient was brought into the cardiac catheterization laboratory and prepped and draped in the usual sterile fashion. I accessed right femoral artery usin g micropuncture kit and fluoroscopy and ultrasound guidance and placed a 6-[place] Alliance sheath and took a 6-[place] JL4 catheter into the aortic root, engaged left main, took standard views and then e xchanged for 6-[place] JR4 catheter, engaged the RCA, took standard views and then gave systemic hepar in to assure ACT level above 250, loaded with Plavix and aspirin and then I took a 6-[place] JR4 guide into the aortic root, engaged the RCA and I took Run-Through wire into the RCA passing the area of s tenosis. The area of stenosis was pre-dilated and I then placed a 3.5 x 60 mm Synergy drug-eluting s tent with excellent results and then wire was removed, catheter was removed and sheath was removed, a nd manual pressure was used for closure with good hemostasis. Findings: 1.Left main; large and normal. 2.LAD; proximal to mid is normal. Diagonal 1 branch is small, has 50% to 60% stenosis. Mid to dist al LAD has diffuse 30% stenosis. 3.Left circumflex; non-dominant with mid 40% to 50% stenosis. OM1 branch appears to be free of dise ase. 4.RCA; large and dominant with stent from proximal all the way to the distal. There was focal reste noses in the mid 99%, status post balloon angioplasty and stent placement as above. Conclusion: 1.Severe mid RCA stenosis, which is a culprit, status post successful PCI as above. 2.Moderate coronary artery disease otherwise. Recommendation: Aspirin, Plavix, high-dose statin, low-dose beta-markos, and CLAUDE inhibitor. SR/MODL Voice ID: [id number] Report ID: [id number]
--- NOTE | 2022-09-24 18:14 | CON ---
Date of Consultation: 09/23/2022 Reason For Consultation: Chest pain, elevated troponin. History Of Present Illness: This is a middle-aged male with history of end-stage renal disease, on h emodialysis Friday, Friday, and Friday, coronary artery disease, previous DC and stents, has hyper tension, dyslipidemia. Presented with chest pain, left-sided, radiates to the jaw and neck. Troponi n first set was slightly elevated and then the second set was significantly elevated. He apparently 6 months ago had cardiac catheterization at [facility] and had a stent placed. Past Medical History: As outlined above in HPI. Medications: Refer to reconciliation sheet for detailed list. Allergies: NO KNOWN DRUG ALLERGIES. Family History: No premature coronary artery disease or cancer. Social History: Does not smoke or drink. Does not use any drugs. Review of Systems: All systems reviewed and they were negative except what mentioned in HPI. Physical Examination: Vital Signs: Reviewed. Head and Neck: Pupils are equal, reactive to light. Intact eye movements. No JVD. No cervical lym phadenopathy. Neck is supple. Thyroid is not enlarged. Lungs: Clear to auscultation bilaterally. No rhonchi, wheezing, or crackles. No accessory muscle u se. Heart: Regular rate and rhythm. No extra sounds. Abdomen: Soft, nontender. Bowel sounds positive. No organomegaly. No masses or hernia. No rigidi ty or rebound. Extremities: No edema, clubbing, or cyanosis. Intact pulses. Skin: No rash. Neurologic: Alert, awake, oriented x3. No acute focal deficits appreciated. Investigations: His BUN is 116, creatinine 15.2, and troponin peaked at 8516. Assessment And Recommendations: 1.Non-ST elevation myocardial infarction. Keep the patient n.p.o., plan for coronary angiogram and PCI as indicated. Meanwhile, continue heparin and aspirin. 2.Hypertension. Blood pressure is controlled. Continue current management. 3.Dyslipidemia. Continue statin. 4.End-stage renal disease, on hemodialysis. SR/MODL Voice ID: [id number] Report ID: [id number]
--- NOTE | 2022-09-24 18:59 | PN ---
Date of Progress Note: 09/24/2022 Subjective: Seen by bedside, doing clinically well. Does not have any chest pain, shortness of juan ramon th, orthopnea, cough, nausea, vomiting, or diarrhea. All other systems reviewed and they were negati ve. Physical Examination: Vital Signs: Reviewed. Head And Neck: Pupils are equal and reactive to light. Intact eye movements. No JVD. No cervical lymphadenopathy. Neck is supple. Thyroid is not enlarged. Lungs: Clear to auscultation bilaterally. No rhonchi, wheezing, or crackles. No accessory muscle u se. Heart: Regular rate and rhythm. No extra sounds. Abdomen: Soft, nontender. Bowel sounds positive. No organomegaly. No masses or hernia. No rigidi ty or rebound. Extremities: No edema, clubbing, or cyanosis. Intact pulses. Skin: No rash. Neurologic: Alert, awake, and oriented x3. No acute focal deficits appreciated. Investigation: Labs were reviewed. Assessment/recommendation: 1.Acute non-ST elevation myocardial infarction status post successful percutaneous coronary interven tion of mid right coronary artery, which is the culprit. We will continue aspirin, Plavix, and high- dose statin. 2.Dyslipidemia. Continue statin. 3.Hypertension. Blood pressure is controlled. Continue home medications. From Cardiology standpoint, the patient can be released and follow up as an outpatient. SR/MODL Voice ID: [id number] Report ID: [id number]
--- NOTE | 2022-09-24 20:08 | P.PN ---
Date of Service: 09/24/22 Vital Signs Temp Pulse Resp BP Pulse Ox 97.3 F 65 16 109/53 L 98 09/24/22 16:00 09/24/22 16:00 09/24/22 16:00 09/24/22 16:00 09/24/22 16:00 Lab Results (last 24 hrs) 09/24/22 16:01: POC Glucose 118 09/24/22 10:40: POC Glucose 140 H 09/24/22 07:27: POC Glucose 93 09/24/22 05:56: Sodium 135 L, Potassium 4.5, Chloride 96 L, Carbon Dioxide 30, Anion Gap 13.5, BUN 64 H, Creatinine 10.90 H*, Est GFR (CKD-EPI) 5 L, Glucose 96, Calcium 8.5, Magnesium 2.7 H, TSH 0.894, Free T4 1.15 09/24/22 05:56: WBC 6.80, RBC 2.92 L, Hgb 9.3 L, Hct 26.5 L, MCV 90.8, MCH 31.8, MCHC 35.1, RDW 15.0, Plt Count 87 L, MPV 9.1, Neutrophils % 67.7, Lymphocytes % 21.5, Monocytes % 9.5, Eosinophils % 0.6, Basophils % 0.7, Absolute Neutrophils 4.6, Absolute Lymphocytes 1.5, Absolute Monocytes 0.6, Absolute Eosinophils 0.0, Absolute Basophils 0.0 09/24/22 05:00: Sodium Cancelled, Potassium Cancelled, Chloride Cancelled, Carbon Dioxide Cancelled, Anion Gap Cancelled, BUN Cancelled, Creatinine Cancelled, Est GFR (CKD-EPI) Cancelled, Glucose Cancelled, Calcium Cancelled 09/24/22 05:00: WBC Cancelled, RBC Cancelled, Hgb Cancelled, Hct Cancelled, MCV Cancelled, MCH Cancelled, MCHC Cancelled, RDW Cancelled, Plt Count Cancelled, MPV Cancelled, Plt Distribution Width Cancelled, Absolute Nucleated RBC Cancelled, Neutrophils % Cancelled, Lymphocytes % Cancelled, Monocytes % Cancelled, Eosinophils % Cancelled, Basophils % Cancelled, Nucleated RBC % Cancelled, Absolute Neutrophils Cancelled, Absolute Lymphocytes Cancelled, Absolute Monocytes Cancelled, Absolute Eosinophils Cancelled, Absolute Basophils Cancelled, Diff Path Review Cancelled 09/23/22 19:57: POC Glucose 117 Assessment/ Plan: Nephrology No dyspnea No chest pain Episode of rapid Afib yesterday at the end of dialysis General: In no apparent distress, Oriented x3, Cooperative HEENT: Atraumatic Neck: Supple Respiratory: Clear to auscultation bilaterally Cardiovascular: Regular rate/rhythm, Edema Gastrointestinal: Soft and benign, Non-distended Musculoskeletal: No clubbing, No contractures Integumentary: No rashes, No cyanosis Neurological: Normal speech Laboratory Data (last 24 hrs) 09/22/22 09:23: APTT 55.1 H 09/22/22 04:44: Sodium 137, Potassium 4.3, BUN 98 H, Creatinine 12.90 H*, Glucose 164 H, Triglycerides 85, Cholesterol 87, HDL Cholesterol 31 L, Cholesterol/HDL Ratio 2.81 09/22/22 04:44: WBC 10.40, Hgb 9.7 L, Hct 28.7 L, Plt Count 93 L Conclusions/Impression: ESRD on HD MWF -Recommend HD today prior to discharge HTN with CKD/ CHF -Continue Coreg and Nifedipine Diastolic CHF, chronic -Low sodium diet DM II with CKD -RISS Anemia in CKD -Continue Retacrit CKD MBD -Continue Ergo -Continue Renvela CAD with chest pain -RCA stent this admission
[2022-09-24] MEDS ORDERED: TICAGRELOR 90 MG TABLET PO SCH (21:00)
--- NOTE | 2022-09-26 08:05 | EKG ---
Test Date: 2022-09-23 Test Time: 18:16:46 Electronic Science Teacher: REBECCA MEASUREMENT RESULTS: Intervals: Rate: 133 KS: QRSD: 104 QT: 356 QTc: 529 [place]: P: KS: QRS: -32 T: 133 INTERPRETIVE STATEMENTS: Supraventricular tachycardia Left axis deviation Left ventricular hypertrophy with strain pattern Electronically Signed On 09-26-22 07:58:41 EDUCATOR SENIOR CLINICAL by Bardy Macias
== END 2022-09-24 16:15 | disposition home or self-care (01) | DRG 246 ==
LOC: 2ND 04:00
PROVIDERS: ADMIT Internal Medicine; ATTEND Hospitalist
PROC: 027034Z Dilation of Coronary Artery, One Artery with Drug-eluting Intraluminal Device, Percutaneous Approach (ICD-10-PCS; principal; 2022-09-23)
PROC: B2111ZZ Fluoroscopy of Multiple Coronary Arteries using Low Osmolar Contrast (ICD-10-PCS; 2022-09-23)
PROC: 5A1D70Z Performance of Urinary Filtration, Intermittent, Less than 6 Hours Per Day (ICD-10-PCS; 2022-09-23)
DX: I21.4 Non-ST elevation (NSTEMI) myocardial infarction (principal); N18.6 End stage renal disease; I13.2 Hypertensive heart and chronic kidney disease with heart failure and with stage 5 chronic kidney disease, or end stage renal disease; I50.32 Chronic diastolic (congestive) heart failure; I25.10 Atherosclerotic heart disease of native coronary artery without angina pectoris; I48.91 Unspecified atrial fibrillation; E11.22 Type 2 diabetes mellitus with diabetic chronic kidney disease; D63.1 Anemia in chronic kidney disease; E78.5 Hyperlipidemia, unspecified; F17.200 Nicotine dependence, unspecified, uncomplicated; I25.2 Old myocardial infarction; Z99.2 Dependence on renal dialysis; Z95.5 Presence of coronary angioplasty implant and graft; Z79.82 Long term (current) use of aspirin; Z79.899 Other long term (current) drug therapy
CPT/HCPCS: 36415; 76937; 80048; 80061; 82947; 83036; 83735; 84439; 84443; 84484; 85025; 85347; 85730; 90935; 93005; 93306; 93454; C1725; C1893; C9600; J0360; J0461; J1160; J1644; J1815; J2001; J2150; J2250; J2405; J3010; J7040; Q9967